=== PATIENT | male | born 1970 | race Caucasian/White ===

== ENCOUNTER 2020-10-22 10:24 | Outpatient (REF) | payer OTHER, SELFPAY ==
[2020-10-22 10:29] LABS: MANUAL DIFF FLAG NO
[2020-10-22 10:46] LABS: Basophils Percent Auto 0.2 % (0-2); Eosinophils Absolute Auto 0.2 X10*3/uL (0.0-0.4); Eosinophils Percent Auto 3.5 % (0-4); Hematocrit 38.9 % (42-52); Hemoglobin 12.5 g/dl (14.0-18.0); Imm Gran Abs Auto 0.01 X10*3/uL (0.00-0.03); Imm Gran Pct Auto 0.2 % (0.0-0.4); Lymphocytes Percent Auto 30.9 % (20-40); Mean Corpuscular HGB Conc 32.1 g/dl (31.0-36.0); Mean Corpuscular Hemoglobin 28.9 pg (27.0-33.0); Mean Platelet Volume 10.4 fL (9.4-12.4); Monocytes Absolute Auto 0.5 X10*3/uL (0.1-1.2); Monocytes Percent Auto 8.5 % (2-11); Neutrophils Absolute Auto 3.6 X10*3/uL (2.0-8.3); Neutrophils Percent Auto 56.7 % (45-73); Platelet Count 251 X10*3/uL (160-400); Red Blood Count 4.32 X10*6/uL (4.60-5.80); Red Cell Distribution Width 13.2 % (11.0-16.0); White Blood Count 6.4 X10*3/uL (4.8-10.8)
[2020-10-22 11:04] LABS: Appearance Urine CLEAR; Color Urine YELLOW; Glucose Urine UA NEG (NEG); Leukocyte Esterase Urine NEG (NEG); Nitrite Urine NEG (NEG); Specific Gravity - Urine >= 1.030 (1.005-1.025); Urine Blood 1+ (NEG); Urine Ketones NEG (NEG); Urine Protein NEG (NEG-TRACE)
[2020-10-22 11:17] LABS: Estimated Average Glucose 120 mg/dL; Hemoglobin A1c % 5.8 %
[2020-10-22 11:21] LABS: Amorphous Sediment Urine TRACE /LPF; RBC Urine 0-2 /HPF (0); WBC Urine 0-2 /HPF (0-4)
[2020-10-22 11:31] LABS: Alanine Aminotransferase 19 U/L (0-40); Albumin Level 4.7 g/dL (3.5-5.0); Alkaline Phosphatase 65 U/L (39-117); Anion Gap 14 (12-20); Aspartate Amino Transferase 18 U/L (5-37); Bilirubin Total 0.7 mg/dL (0.0-1.0); Blood Urea Nitrogen 24 mg/dL (9-16); Calcium 9.6 mg/dL (8.4-10.2); Carbon Dioxide 23 mmol/L (22-29); Chloride 105 mmol/L (96-108); Cholesterol 177 mg/dL; Estimated Glomerular Filt Rate > 60; Glucose Fasting 100 mg/dL (60-99); HDL Cholesterol 49 mg/dL; LDL Cholesterol Calculated 111 mg/dl; Potassium 4.2 mmol/L (3.3-5.1); Sodium 138 mmol/L (135-145); Total Protein 7.4 g/dL (6.5-8.0); Triglycerides 85 mg/dL
[2020-10-22 11:33] LABS: Creatinine Urine 230.23 mg/dL; Microalbum/Creatinine Ratio Ur 4.7 ug/mg cr
[2020-10-22 11:38] LABS: PSA,Total (Free>4and<10) 0.37 ng/mL (0.00-4.00)
== END 2020-10-22 10:25 | disposition home or self-care (01) ==
LOC: HO.LNP 10:24
PROVIDERS: Visit Provider Internal Medicine
DX: Z00.00 Encounter for general adult medical examination without abnormal findings (principal); Z12.5 Encounter for screening for malignant neoplasm of prostate; R73.03 Prediabetes; I10 Essential (primary) hypertension
CPT/HCPCS: 80053; 80061; 81001; 81003; 82043; 83036; 84153; 85025

== ENCOUNTER 2021-03-13 23:50 | Emergency (ER) | payer OTHER, SELFPAY ==
--- NOTE | ~2021-03-13 | US_ITS ---
EXAMINATION: US SCROTUM CLINICAL INFORMATION: Pain, question torsion. COMPARISON: None TECHNIQUE: A sonogram of the scrotum was performed assessing taylor-scale appearance and color Doppler flow. Spectral Doppler analysis of the arterial and venous flow were performed in the testes bilaterally. FINDINGS: RIGHT: Right testicle measures 4.1 x 2.9 x 2.9 cm, volume 18.5 mL. No focal testicular parenchymal lesions are visualized. Spectral Doppler analysis of the arterial and venous flow is normal in the right testis. Right-sided appendix testis is noted. Right epididymis appears enlarged. Right epididymal Doppler flow is increased. There is a 0.4 cm epididymal head cyst. Small right hydrocele with some septations. No right varicocele is seen. LEFT: Left testicle measures 4.2 x 2.3 x 2.6 cm, volume 12.7 mL. No focal testicular parenchymal lesions are visualized. Spectral Doppler analysis of the arterial and venous flow is normal in the left testis. Left epididymal head is normal in size. No left hydrocele or varicocele is seen. Left epididymal Doppler flow is normal. US/US scrotum doppler IMPRESSION: 1. Enlarged and hyperemic right epididymis, consistent with epididymitis. 2. Small right hydrocele with some internal septations. 3. No findings of testicular torsion.
--- NOTE | ~2021-03-13 | US_ITS ---
EXAMINATION: US SCROTUM CLINICAL INFORMATION: Pain, question torsion. COMPARISON: None TECHNIQUE: A sonogram of the scrotum was performed assessing taylor-scale appearance and color Doppler flow. Spectral Doppler analysis of the arterial and venous flow were performed in the testes bilaterally. FINDINGS: RIGHT: Right testicle measures 4.1 x 2.9 x 2.9 cm, volume 18.5 mL. No focal testicular parenchymal lesions are visualized. Spectral Doppler analysis of the arterial and venous flow is normal in the right testis. Right-sided appendix testis is noted. Right epididymis appears enlarged. Right epididymal Doppler flow is increased. There is a 0.4 cm epididymal head cyst. Small right hydrocele with some septations. No right varicocele is seen. LEFT: Left testicle measures 4.2 x 2.3 x 2.6 cm, volume 12.7 mL. No focal testicular parenchymal lesions are visualized. Spectral Doppler analysis of the arterial and venous flow is normal in the left testis. Left epididymal head is normal in size. No left hydrocele or varicocele is seen. Left epididymal Doppler flow is normal. US/US scrotum IMPRESSION: 1. Enlarged and hyperemic right epididymis, consistent with epididymitis. 2. Small right hydrocele with some internal septations. 3. No findings of testicular torsion.
[2021-03-13 23:54] VITALS: BP 180/104; PULSE 95; RESP 20; TEMP 36.8; O2SAT 100; BMI 28.5
--- NOTE | 2021-03-14 00:12 | ED_ITS ---
HPI - General Adult General Chief complaint: General Medical Stated complaint: Groin pain Time Seen by Provider: 03/13/21 23:59 History of Present Illness HPI narrative: Patient is a 50-year-old male presents today with having pain to the right testicle. Symptoms started this morning. There is no fever no chills. Patient's . no pain on urination. No coughing or congestion or upper respiratory symptoms. No history of similar symptoms in the past. Patient is from home. Positive history of hypertension positive allergies to bee stings only no allergies to medications. The pain is extreme worse with touch. Related Data Previous Rx's Medication Instructions Recorded ibuprofen 400 mg tablet 400 mg PO Q6H PRN #20 tab 03/14/21 levofloxacin 500 mg tablet 500 mg PO DAILY #10 tab 03/14/21 oxycodone 5 mg tablet 5 mg PO Q8H PRN #7 tab 03/14/21 Allergies Allergy/AdvReac Type Severity Reaction Status Date / Time bee pollen [Bee Allergy Severe ANAPHYLAXIS Unverified 10/24/19 15:52 Stings] BEE STINGS Allergy Unknown Uncoded 10/26/17 00:00 Review of Systems Verdana 4l Review of Systems: Verdana 4d Positive pain to the Verdana 4d right groin area no nausea no vomiting no chest pain or shortness of breath no dizziness Verdana 4d Yes all other systems are reviewed and are negative [facility] Past Medical History Attestation statement: The following information was validated with the patient. Medical History Hypertension Social History Social History Advance Directives: No Advance Directives Information Provided: No Physical Exam Verdana 4l Vital Signs: Verdana 4d Verdana 4d Vital Signs: Verdana 4d Verdana 4Bd Last Vital Signs Verdana 4d Caustic Liquor Maker New 4d Caustic Liquor Maker New 4d Temp 98.2 F 03/13/21 23:54 Caustic Liquor Maker New 4d Pulse 95 03/13/21 23:54 Caustic Liquor Maker New 4d Resp 20 03/13/21 23:54 BP 180/104 H 03/13/21 23:54 Pulse Ox 100 03/13/21 23:54 BMI result Body Mass Index 28.5 Appearance: Alert. Oriented X3. No acute distress. Eyes: Pupils equal, round and reactive to light. ENT: Pharynx normal. Neck: Normal inspection. Neck supple. No lymph nodes noted. No crepitus CVS: Normal heart rate and rhythm. Pulses normal. Normal S1 and S2 Respiratory: No respiratory distress. Breath sounds normal. No Wheezing. No rales Abdomen: Soft and nontender. No rigidity. No distention. good BS x4 examination of the genital area there is redness and warmth to touch to the right testicle. The right testicle is grossly enlarged. Cream a steroid reflex was intact. There is no discharge and stripping of the penis. There is no gross hernia that was palpable. Skin: Skin warm and dry. Normal skin color. Normal skin turgor. Extremities: No lower extremity edema. Neurovascular intact to all extremities. No Lacerations. No Rash Neuro: Oriented X 3. No motor deficit. No sensory deficit. Moving all extermities. No slurred speech Medical Decision Making MDM Narrative Medical decision making narrative: Patient's symptoms are suggestive of orchitis Versus epididymitis.. Will check urine. GC chlamydia was sent. Will go ahead get an ultrasound of the testicle to rule out the possibility of torsion. Pain medication was given. Will also go ahead and give a dose of Levaquin. Patient is currently in stable condition. Patient is in a monogamous relationship. Lab Data Result diagrams: 03/14/21 00:19 03/14/21 00:19 Labs: Lab Results 03/14/21 03/14/21 Range/Units 00:19 00:19 WBC 17.0 H (4.8-10.8) X10*3/uL RBC 4.35 L (4.60-5.80) X10*6/uL Hgb 12.3 L (14.0-18.0) g/dl Hct 38.3 L (42.0-52.0) % MCV 88.0 (80.0-98.0) fL MCH 28.3 (27.0-33.0) pg MCHC 32.1 (31.0-36.0) g/dl RDW 12.5 (11.0-16.0) % Plt Count 304 (160-400) X10*3/uL MPV 9.3 L (9.4-12.4) fL Immature Gran % (Auto) 0.3 (0.0-0.4) % Neut % (Auto) 82.6 H (45-73) % Lymph % (Auto) 11.0 L (20-40) % [place] % (Auto) 5.8 (2-11) % Eos % (Auto) 0.2 (0-4) % Baso % (Auto) 0.1 (0-2) % Lymph # (Auto) 1.9 (1.2-4.9) X10*3/uL [place] # (Auto) 1.0 (0.1-1.2) X10*3/uL Eos # (Auto) 0.0 (0.0-0.4) X10*3/uL Baso # (Auto) 0.0 (0.0-0.2) X10*3/uL Abs Immat Gran (auto) 0.05 H (0.00-0.03) X10*3/uL Absolute Neuts (auto) 14.1 H (2.0-8.3) x10*3/uL Absolute Nucleated RBC 0.000 (0.0-0.012) X10*3/uL Nucleated RBC % (auto) 0.0 (0.0-0.2) /100WBC Sodium 139 (135-145) mmol/L Potassium 3.9 (3.3-5.1) mmol/L Chloride 104 (96-108) mmol/L Carbon Dioxide 24 (22-29) mmol/L Anion Gap 15 (12-20) BUN 29 H (9-16) mg/dL Creatinine 0.95 (0.5-1.4) mg/dL Estim Creat Clear Calc 107.1 Estimated GFR > 60 Random Glucose 110 (60-115) mg/dL Calcium 10.0 (8.4-10.2) mg/dL Discharge Plan Discharge Clinical Impression: Epididymitis Patient Disposition: Home, Self-Care Prescriptions: New ibuprofen 400 mg tablet 400 mg PO Q6H PRN (Reason: pain) Qty: 20 0RF oxycodone 5 mg tablet 5 mg PO Q8H PRN (Reason: pain) Qty: 7 0RF levofloxacin 500 mg tablet 500 mg PO DAILY Qty: 10 0RF Referrals: Cameron Trejo MD [Physician] - 2 days
[2021-03-14 00:23] LABS: MANUAL DIFF FLAG NO
[2021-03-14 00:24] LABS: Basophils Percent Auto 0.1 % (0-2); Eosinophils Percent Auto 0.2 % (0-4); Hematocrit 38.3 % (42.0-52.0); Hemoglobin 12.3 g/dl (14.0-18.0); Imm Gran Abs Auto 0.05 X10*3/uL (0.00-0.03); Imm Gran Pct Auto 0.3 % (0.0-0.4); Lymphocytes Absolute Auto 1.9 X10*3/uL (1.2-4.9); Mean Corpuscular HGB Conc 32.1 g/dl (31.0-36.0); Mean Corpuscular Hemoglobin 28.3 pg (27.0-33.0); Mean Platelet Volume 9.3 fL (9.4-12.4); Monocytes Percent Auto 5.8 % (2-11); Neutrophils Absolute Auto 14.1 x10*3/uL (2.0-8.3); Neutrophils Percent Auto 82.6 % (45-73); Platelet Count 304 X10*3/uL (160-400); Red Blood Count 4.35 X10*6/uL (4.60-5.80); Red Cell Distribution Width 12.5 % (11.0-16.0)
[2021-03-14] MEDS: HYDROmorphone HCl 0.5 MG/0.5 ML SYRINGE IVPUSH ×2 (00:33→01:37)
[2021-03-14] MEDS: levoFLOXacin 500 MG TABLET PO (00:34)
[2021-03-14 00:39] LABS: Anion Gap 15 (12-20); Blood Urea Nitrogen 29 mg/dL (9-16); Carbon Dioxide 24 mmol/L (22-29); Chloride 104 mmol/L (96-108); Creatinine Clr Calc Pharmacy 107.1; Estimated Glomerular Filt Rate > 60; Glucose Random 110 mg/dL (60-115); Potassium 3.9 mmol/L (3.3-5.1); Sodium 139 mmol/L (135-145)
--- NOTE | 2021-03-14 00:44 | PC.NURSE ---
RN returned to bedside from bringing labs to the tube and obtaining odered medication. Upon arrival to bedside the pt was noted seated on the edge of the bed with spouse at his side who reports the pt passed out for a brief moment, denies the patient falling and/or injuring himself as she reports she was able to get him to a laying position in the bed. Pt noted to be alert, oriented, pale, diaphoretic with tegaderm to left forearm lifted. This RN called for additional assistance, assisted the patient into the bed fully, placed on the cardiac monitor technician (sinus logan noted) and an ice pack applied to his forehead. Staff replaced the IV securement and secured with additional wrap. Pt was medicated per MD order for 9/10 right testicular pain; pt's toradol was held as he and his bedside visitor reported Advil at 2030 this evening. Md made aware and toradol to be held at this time. Call roberts is within reach, lights dimmed for comfort and RN will continue to monitor. MD requesting UA, pt to be encouraged to attempt to provide a sample.
[2021-03-14] MEDS: 0.9 % Sodium Chloride 1,000 ML 999 ML IV (01:37)
[2021-03-14 01:43] VITALS: BP 128/78; PULSE 58; RESP 18; O2SAT 97
[2021-03-14 01:55] LABS: Appearance Urine CLOUDY; Color Urine YELLOW; Glucose Urine UA NEG (NEG); Leukocyte Esterase Urine 2+ (NEG); Nitrite Urine NEG (NEG); PH 7.5 (5.0-8.0); UACC Culture Trigger YES; Urine Blood 3+ (NEG); Urine Ketones NEG (NEG); Urine Protein 1+ MG/DL (NEG-TRACE)
[2021-03-14 02:01] LABS: Bacteria Urine 2+ /LPF; Mucus Urine 1+ /LPF; UACC CULT YES
[2021-03-14 03:22] LABS: CT PCR NOT DETECTED (Not Detect.); NG PCR NOT DETECTED (Not Detect.)
== END 2021-03-14 02:37 | disposition home or self-care (01) ==
LOC: HO.ED 03-14 00:23
PROVIDERS: Emergency Provider Emergency Medicine Emergency Medical Services; PCP Internal Medicine
DX: N45.1 Epididymitis (principal); N50.811 Right testicular pain; R10.31 Right lower quadrant pain; Z79.899 Other long term (current) drug therapy; Z20.2 Contact with and (suspected) exposure to infections with a predominantly sexual mode of transmission
CPT/HCPCS: 36415; 76870; 80048; 81001; 85025; 87086; 87491; 87591; 93975; 96374; 96375; 96376; 99284; J1170

== ENCOUNTER 2021-03-26 11:10 | Outpatient (REF) | payer OTHER, SELFPAY ==
[2021-03-26 11:14] LABS: MANUAL DIFF FLAG NO
[2021-03-26 11:32] LABS: Basophils Percent Auto 0.3 % (0-2); Eosinophils Absolute Auto 0.2 X10*3/uL (0.0-0.4); Eosinophils Percent Auto 2.2 % (0-4); Hematocrit 37.4 % (42.0-52.0); Hemoglobin 11.8 g/dl (14.0-18.0); Imm Gran Abs Auto 0.03 X10*3/uL (0.00-0.03); Imm Gran Pct Auto 0.4 % (0.0-0.4); Lymphocytes Absolute Auto 1.9 X10*3/uL (1.2-4.9); Lymphocytes Percent Auto 26.3 % (20-40); Mean Corpuscular HGB Conc 31.6 g/dl (31.0-36.0); Mean Corpuscular Hemoglobin 28.5 pg (27.0-33.0); Mean Corpuscular Volume 90.3 fL (80.0-98.0); Mean Platelet Volume 10.1 fL (9.4-12.4); Monocytes Absolute Auto 0.5 X10*3/uL (0.1-1.2); Monocytes Percent Auto 7.4 % (2-11); Neutrophils Absolute Auto 4.5 x10*3/uL (2.0-8.3); Neutrophils Percent Auto 63.4 % (45-73); Platelet Count 319 X10*3/uL (160-400); Red Blood Count 4.14 X10*6/uL (4.60-5.80); Red Cell Distribution Width 12.8 % (11.0-16.0); White Blood Count 7.2 X10*3/uL (4.8-10.8)
[2021-03-26 11:35] LABS: Appearance Urine CLEAR; Color Urine YELLOW; Glucose Urine UA NEG (NEG); Leukocyte Esterase Urine NEG (NEG); Nitrite Urine NEG (NEG); PH 5.5 (5.0-8.0); Specific Gravity - Urine >= 1.030 (1.005-1.025); Urine Blood 1+ (NEG); Urine Ketones NEG (NEG); Urine Protein NEG (NEG-TRACE)
[2021-03-26 11:41] LABS: Blood Urea Nitrogen 31 mg/dL (9-16); Estimated Glomerular Filt Rate > 60
[2021-03-26 11:50] LABS: RBC Urine 0-2 /HPF (0)
[2021-03-26 11:51] LABS: Bacteria Urine TRACE /LPF; Mucus Urine 1+ /LPF
== END 2021-03-26 11:11 | disposition home or self-care (01) ==
LOC: HO.LNP 11:10
PROVIDERS: Visit Provider Internal Medicine
DX: D72.829 Elevated white blood cell count, unspecified (principal); R31.9 Hematuria, unspecified; R79.9 Abnormal finding of blood chemistry, unspecified
CPT/HCPCS: 81001; 82565; 84520; 85025; 87086

== ENCOUNTER 2021-04-19 10:46 | Outpatient (REF) | payer OTHER, SELFPAY ==
[2021-04-19 11:08] LABS: Blood Urea Nitrogen 20 mg/dL (9-16); Estimated Glomerular Filt Rate > 60
== END 2021-04-19 10:47 | disposition home or self-care (01) ==
LOC: HO.LNP 10:46
PROVIDERS: Visit Provider Internal Medicine
DX: R79.9 Abnormal finding of blood chemistry, unspecified (principal)
CPT/HCPCS: 82565; 84520

== ENCOUNTER → 2021-05-05 11:29 | Outpatient (BNVA) | payer OTHER, SELFPAY | PROVIDERS: PCP Internal Medicine; Visit Provider Urology | DX: Z13.89 Encounter for screening for other disorder (principal) ==

== ENCOUNTER 2021-05-06 08:50 | Outpatient (REF) | payer OTHER, SELFPAY ==
--- NOTE | ~2021-05-06 | XR_ITS ---
EXAMINATION: XR ANKLE, RIGHT CLINICAL INFORMATION: Pain in right ankle. COMPARISON: None TECHNIQUE: AP, lateral, and mortise views of the right ankle. FINDINGS: There is a linear shaped focus of calcification or ossification paralleling the posterior cortex of the posterior malleolus of the tibia. There is mild arthrosis of the talonavicular joint manifested by small marginal osteophytes. Small calcaneal spurs. XR/XR ankle RT min 3V IMPRESSION: Calcification or ossification posterior to the tibia likely sequela of old soft tissue trauma with resultant dystrophic or heterotopic ossification. No acute abnormality. Mild arthrosis of the talonavicular joint.
== END 2021-05-06 08:51 | disposition home or self-care (01) ==
LOC: HO.HOSX 08:50
PROVIDERS: Visit Provider Physician Assistant
DX: S93.401A Sprain of unspecified ligament of right ankle, initial encounter (principal)
CPT/HCPCS: 73610

== ENCOUNTER 2021-06-18 08:00 | Outpatient (RCR) | payer OTHER, SELFPAY ==
[2021-05-18 08:02] VITALS: BP 161/95; PULSE 54
--- NOTE | 2021-05-18 08:59 | MHC.PT.EP ---
[facility] [place] Office [place] Office [place] Office [address] Moises Ghosh [address] [phone] F: [phone] F: [phone] F: [phone] F: [phone] Physical Therapy Plan of Care Date of Evaluation: Date of Surgery: NA Diagnosis: Sprain of unspecified ligament of R ankle, initial encounter Assessment: Antwon is a 50 year old male who is referred to PT for Sprain of unspecified ligament of R ankle, initial encounter . He reports of injuring his ankle about 2 months back following a fall on his R knee which resulted in R ankle going into excessive plantar flexion. On PT examination he presents with a mild constant pain which gets worse with standing, stairs, and walking more than 20 minutes, decreased ankle ROM, decreased ankle muscle strength, impaired posture, balance and gait. Due to this he has pain with his ADLS but is able to perform them. He has a desk job. He would benefit from skilled PT to address the aforementioned impairments and improve tolerance to functional activities. Frequency and Duration: The patient will be seen 2/week for 5 weeks Short Term Goals: 1. Pt will have 50% decrease in pain which will help him sit at work without pain in 2 weeks. 2. Pt will have all ankle ROM WNL which will help him to negotiate stairs with a pain no more than 1/10 in 3 weeks Assisted Goals: 1. Pt will demonstrate an increase in muscle strength by 1 grade which will enable him to walk for 30 minutes without pain in 4 weeks. 2. Pt will return to PLOF in 5 weeks Treatment Plan: Modalities to reduce pain, spasms and effusion. Manual therapy to restore motion and function. Therapeutic exercise to improve strength and flexibility. Neuromuscular re-education for posture and balance. Therapeutic activities to return to functional activities of daily living. Electronically signed by: Lizbeth Fuchs PT DPT Please sign and return to therapist. Thank you for your referral.
--- NOTE | 2021-07-26 11:24 | MHC.PT.DC ---
[facility] [place] Office [place] Office [place] Office [address] Moises Ghosh [address] [phone] F: [phone] F: [phone] F: [phone] F: [phone] Physical Therapy Discharge Report Diagnosis: Sprain of unspecified ligament of R ankle, initial encounter Date of Surgery: NA Date of Evaluation: 05/18/21 Date of Discharge: 07/26/21 Treatments to Date: 6 Cancellations to Date: 0 No Shows to Date: 0 Discharge Status: Patient Elected to Stop Discharge Summary: Antwon was making progress with PT. However after 6 PT visits he stopped coming to PT. He is therefore being d/c for non compliance. Electronically signed by: Lizbeth Fuchs, PT DPT Please sign and return to therapist. Thank you for your referral.
== END 2021-07-26 11:25 | disposition home or self-care (01) ==
LOC: HO.PT 08:00
PROVIDERS: PCP Internal Medicine; Visit Provider Physician Assistant
DX: S93.401D Sprain of unspecified ligament of right ankle, subsequent encounter (principal)
CPT/HCPCS: 97035; 97110; 97112; 97140; 97161

== ENCOUNTER 2021-06-22 10:38 | Outpatient (REF) | payer OTHER, SELFPAY ==
[2021-06-22 11:47] LABS: Appearance Urine HAZY; Color Urine STRAW; Glucose Urine UA NEG (NEG); Leukocyte Esterase Urine NEG (NEG); Nitrite Urine NEG (NEG); PH 7.5 (5.0-8.0); Specific Gravity - Urine 1.015 (1.005-1.025); Urine Blood TRACE (NEG); Urine Ketones NEG (NEG); Urine Protein NEG (NEG-TRACE)
[2021-06-22 12:02] LABS: RBC Urine 0-2 /HPF (0); WBC Urine 0-2 /HPF (0-4)
== END 2021-06-22 10:39 | disposition home or self-care (01) ==
LOC: HO.LNP 10:38
PROVIDERS: PCP Internal Medicine; Visit Provider Internal Medicine
DX: Z87.448 Personal history of other diseases of urinary system (principal)
CPT/HCPCS: 81001

== ENCOUNTER 2021-08-03 10:25 | Outpatient (REF) | payer OTHER, SELFPAY ==
--- NOTE | ~2021-08-03 | US_ITS ---
EXAMINATION: ULTRASOUND EXTREMITY NONVASCULAR, RIGHT CLINICAL INFORMATION: Right knee pain. Rule out Duarte's cyst. COMPARISON: None TECHNIQUE: Doppler color and grayscale evaluation of the popliteal fossa. FINDINGS: No Duarte's cyst is seen. No knee joint effusion is seen. US/US extremity nonvascular quispe IMPRESSION: No Duarte's cyst.
== END 2021-08-03 10:26 | disposition home or self-care (01) ==
LOC: HO.HMGCX 10:25
PROVIDERS: Visit Provider Internal Medicine
DX: M71.21 Synovial cyst of popliteal space [Baker], right knee (principal)
CPT/HCPCS: 76882

== ENCOUNTER 2021-10-28 12:34 | Outpatient (REF) | payer OTHER, SELFPAY ==
[2021-10-28 12:39] LABS: MANUAL DIFF FLAG NO
[2021-10-28 13:02] LABS: Appearance Urine Clear; Basophils Percent Auto 0.3 % (0-2); Color Urine Yellow; Eosinophils Absolute Auto 0.2 X10*3/uL (0.0-0.4); Eosinophils Percent Auto 2.9 % (0-4); Glucose Urine UA Negative (Negative); Hemoglobin 12.7 g/dl (14.0-18.0); Imm Gran Abs Auto 0.02 X10*3/uL (0.00-0.03); Imm Gran Pct Auto 0.3 % (0.0-0.4); Leukocyte Esterase Urine Negative (Negative); Lymphocytes Absolute Auto 1.7 X10*3/uL (1.2-4.9); Mean Corpuscular HGB Conc 31.8 g/dl (31.0-36.0); Mean Corpuscular Hemoglobin 28.5 pg (27.0-33.0); Mean Corpuscular Volume 89.7 fL (80.0-98.0); Mean Platelet Volume 10.1 fL (9.4-12.4); Monocytes Absolute Auto 0.5 X10*3/uL (0.1-1.2); Neutrophils Absolute Auto 4.1 x10*3/uL (2.0-8.3); Neutrophils Percent Auto 63.5 % (45-73); Nitrite Urine Negative (Negative); PH 6.5 (5.0-9.0); Platelet Count 236 X10*3/uL (160-400); Red Blood Count 4.46 X10*6/uL (4.60-5.80); Red Cell Distribution Width 13.2 % (11.0-16.0); Specific Gravity - Urine 1.025 (1.005-1.025); UMIC TRIGGER UA YES; Urine Blood Small (1+) (Negative); Urine Ketones Negative (Negative); Urine Protein Negative (Neg-Trace); White Blood Count 6.5 X10*3/uL (4.8-10.8)
[2021-10-28 13:07] LABS: Bacteria Urine None Seen (None Seen); Hyaline Casts Urine 0-2 /LPF (0-2); Squamous Epithelial Cell Urine 0-2 /HPF (0-2); WBC Urine 0-5 /HPF (0-5)
[2021-10-28 13:13] LABS: Estimated Average Glucose 117 mg/dL; Hemoglobin A1c % 5.7 %
[2021-10-28 13:14] LABS: Alanine Aminotransferase 16 U/L (0-40); Albumin Level 4.6 g/dL (3.5-5.0); Alkaline Phosphatase 64 U/L (39-117); Anion Gap 17 (12-20); Aspartate Amino Transferase 18 U/L (5-37); Bilirubin Total 0.7 mg/dL (0.0-1.0); Blood Urea Nitrogen 29 mg/dL (9-16); Calcium 9.5 mg/dL (8.4-10.2); Carbon Dioxide 22 mmol/L (22-29); Chloride 104 mmol/L (96-108); Cholesterol 195 mg/dL; Estimated Glomerular Filt Rate > 60; Glucose Fasting 110 mg/dL (60-99); HDL Cholesterol 43 mg/dL; LDL Cholesterol Calculated 126 mg/dl; Potassium 4.2 mmol/L (3.3-5.1); Sodium 139 mmol/L (135-145); Total Protein 7.4 g/dL (6.5-8.0); Triglycerides 131 mg/dL
[2021-10-28 13:29] LABS: Creatinine Urine 191.62 mg/dL; Microalbum/Creatinine Ratio Ur 6.7 ug/mg cr
[2021-10-28 13:35] LABS: PSA,Total (Free>4and<10) 0.35 ng/mL (0.00-4.00)
== END 2021-10-28 12:35 | disposition home or self-care (01) ==
LOC: HO.LNP 12:34
PROVIDERS: Visit Provider Internal Medicine
DX: Z00.00 Encounter for general adult medical examination without abnormal findings (principal); Z12.5 Encounter for screening for malignant neoplasm of prostate; E78.6 Lipoprotein deficiency; R73.03 Prediabetes; I10 Essential (primary) hypertension; D72.829 Elevated white blood cell count, unspecified
CPT/HCPCS: 80053; 80061; 81001; 81003; 82043; 83036; 84153; 85025

== ENCOUNTER 2022-04-18 10:42 | Day surgery (SDC) | payer OTHER, SELFPAY ==
[2022-04-18 11:27] VITALS: BP 156/79; PULSE 52; RESP 16; TEMP 36.9; O2SAT 100; BMI 29.9
--- NOTE | 2022-04-18 12:04 | ECG_ITS ---
Test Reason : cp Blood Pressure : / mmHG Vent. Rate : 037 BPM Atrial Rate : 037 BPM P-R Int : 158 ms QRS Dur : 090 ms QT Int : 510 ms P-R-T Axes : 009 044 -06 degrees QTc Int : 400 ms Marked sinus bradycardia Artifact in tracing Abnormal ECG When compared with ECG of 25-MAR-2016 00:41, Vent. rate has decreased BY 21 BPM Referred By: Navin Lee Electronically Signed By:Kane Zhou
--- NOTE | 2022-04-18 12:10 | P.CONAN_ITS ---
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 Hypertension Locking of left knee Microscopic hematuria Family History Family history of problems with anesthesia: No Surgical History Surgical History H/O arthroscopy of left knee History of Problems with Anesthesia: No Social History Social History (Updated 05/06/21 @ 09:21 by Dorothea Weinstein CMA) Household Members: Spouse Household Members Other:: son Housing: House Alcohol intake: current Alcohol intake frequency: 0-2 drinks per day Alcohol type: wine Patient Tobacco Use Status: Former Tobacco user Use of substances other than those prescribed or required for medical reasons: Yes Substance Use Frequency: Occasionally Advance Directives: No Advance Directives Information Provided: Yes service: No Current occupational status: employed Current occupation: work for [employer]/ rt [employer] Allergies Allergy/AdvReac Type Severity Reaction Status Date / Time bee pollen [Bee Stings] Allergy Severe ANAPHYLAXIS Verified 05/06/21 09:18 BEE STINGS Allergy Unknown Unknown Uncoded 05/06/21 09:18 Active Medications: Current Medications Sodium Biphosphate/Sodium Phosphate (Sodium Phosphate,[place]-Dibasic 133 Ml Enema) 133 ml IL ONCE PRN PRN Reason: Poor Colonoscopy Prep Results Home Medications Medication Instructions Recorded Confirmed Last Taken Type valsartan 320 1 tab PO DAILY 05/05/21 Unknown History mg-hydrochlorothiazide 12.5 mg tablet Exam Exam Date and Time: April 18, 2022 1210 Height,Weight and Vital Signs: Height 5 ft 11 in Weight 97.522 kg Last Vital Signs Temp 98.5 F 04/18/22 11:27 Pulse 52 04/18/22 11:27 Resp 16 04/18/22 11:27 BP 156/79 H 04/18/22 11:27 Pulse Ox 100 04/18/22 11:27 O2 Del Method 04/18/22 11:27 Narrative Narrative: symptomatic bradycardia with junctional rhytm was observs ed in pacu Airway Mallampati Class: II TM Dist: >3cm Heart: logan Lungs: cta Assessment and Plan Assessment Anesthesia Assessment: Anesthesia Plan Discussed and Chart Reviewed Final Anesthetic Review Family History of Problems with Anesthesia: No History of Problems with Anesthesia: No NPO: Yes ASA Class: I Final Preanesthetic Review: No Changes in Pt Med Stat, Meds/Allgs Chart Reviewed, Consent Obtained/Reviewed and Anes Risks/Benef Reviewed Patient Risk: Low Procedure Risk: Low Anesthetic Plan Anesthetic Plan: MAC: Disposition: Standard PACU
--- NOTE | 2022-04-18 12:23 | PC.NURSE ---
upon placing i.v. patient heart rate down to upper 20's and symptomatic pale clammy and warm/flush, trend bed, opened fluids, md. Fernandez to bedside and appreciated ?junctional rythm, resolved shortly after to sinus logan, otherwise patient resolved and ekg as per order, patient resolution resting comfortably to baseline withing 10 minutes or so.
--- NOTE | 2022-04-18 13:27 | PM.OP ---
Brief Operative Note Date of Service: 04/18/22 Pre-op diagnosis: Screening Post-op diagnosis: other (Diverticulosis) Procedure: Colonoscopy to the cecum and TI Surgeon: Eze Bowser Anesthesia: MAC Was an Coroner Forensic Technician used for this Procedure?: No Estimated blood loss (mL): 0 Pathology: none sent Condition: stable Disposition: PACU
[2022-04-18 13:28] VITALS: BP 108/53; PULSE 59; RESP 18; TEMP 36.5; O2SAT 97
[2022-04-18 13:43] VITALS: BP 113/56; PULSE 45; RESP 18; TEMP 36.5; O2SAT 98
--- NOTE | 2022-04-18 22:36 | OP_ITS ---
SURGEON: Eze Bowser MD INDICATIONS: The patient presents for evaluation of colorectal cancer screening. Full consent has been obtained from him for this, including risks of bleeding and perforation. PREOPERATIVE DIAGNOSIS: Colorectal cancer screening. POSTOPERATIVE DIAGNOSIS: Colorectal cancer screening, sigmoid diverticulosis, and small internal hemorrhoids. PROCEDURE PERFORMED: Colonoscopy to the cecum and terminal ileum. ESTIMATED BLOOD LOSS: COMPLICATIONS: ANESTHESIA: Medication used, monitored anesthesia care. ASSISTANTS: SPECIMENS: DESCRIPTION OF PROCEDURE: The patient was placed in the left lateral decubitus position. The digital rectal exam revealed no abnormalities. The Olympus video pediatric colonoscope was then entered into the rectum and advanced easily to the cecum. Once in the cecum, I did identify normal-appearing cecal pouch with appendiceal orifice and a normal-appearing ileocecal valve. The terminal ileum was cannulated and appeared normal. The scope was withdrawn back in the colon. The entire cecum and ileocecal valve appeared normal. There was transillumination of light deep in the right lower quadrant. The scope was slowly withdrawn assessing all mucosal surfaces carefully. Preparation was excellent. I did not visualize any sign of polyps, colitis nor angiodysplasia. There was a mild amount of sigmoid diverticulosis. In the rectum, the scope was retroflexed visualizing small internal hemorrhoids, but no other pathology. The rectal mucosa appeared normal. The scope was straightened out and withdrawn from the patient. He tolerated the procedure well and was returned to the recovery area in stable condition. IMPRESSION: 1. Diverticulosis. 2. Internal hemorrhoids. PLAN: Given today's negative colonoscopy and negative family history of colon cancer, I would recommend a followup colonoscopy in 10 years for screening. He will otherwise see me on a p.r.n. basis. MD JUDI Odonnell/AGGIE / [id number] CAIT
== END 2022-04-18 14:31 | disposition home or self-care (01) ==
PROVIDERS: PCP Internal Medicine; Visit Provider Internal Medicine
PROC: 0DJD8ZZ Inspection of Lower Intestinal Tract, Via Natural or Artificial Opening Endoscopic (ICD-10-PCS; CPT 45378; principal; 2022-04-18 12:20)
DX: Z12.11 Encounter for screening for malignant neoplasm of colon (principal); K57.30 Diverticulosis of large intestine without perforation or abscess without bleeding; K64.8 Other hemorrhoids; I10 Essential (primary) hypertension; N45.1 Epididymitis; Z79.899 Other long term (current) drug therapy; Z87.891 Personal history of nicotine dependence
CPT/HCPCS: 45378; 93005; J2250

== ENCOUNTER 2022-10-31 11:19 | Outpatient (REF) | payer OTHER, SELFPAY ==
[2022-10-31 11:23] LABS: MANUAL DIFF FLAG NO
[2022-10-31 11:37] LABS: Basophils Percent Auto 0.2 % (0-2); Eosinophils Absolute Auto 0.1 X10*3/uL (0.0-0.4); Eosinophils Percent Auto 2.5 % (0-4); Hematocrit 38.7 % (42.0-52.0); Hemoglobin 12.3 g/dl (14.0-18.0); Imm Gran Abs Auto 0.02 X10*3/uL (0.00-0.03); Imm Gran Pct Auto 0.4 % (0.0-0.4); Lymphocytes Absolute Auto 1.5 X10*3/uL (1.2-4.9); Lymphocytes Percent Auto 27.3 % (20-40); Mean Corpuscular HGB Conc 31.8 g/dl (31.0-36.0); Mean Corpuscular Hemoglobin 28.5 pg (27.0-33.0); Mean Corpuscular Volume 89.6 fL (80.0-98.0); Mean Platelet Volume 10.3 fL (9.4-12.4); Monocytes Absolute Auto 0.4 X10*3/uL (0.1-1.2); Monocytes Percent Auto 7.2 % (2-11); Neutrophils Absolute Auto 3.5 x10*3/uL (2.0-8.3); Neutrophils Percent Auto 62.4 % (45-73); Platelet Count 212 X10*3/uL (160-400); Red Blood Count 4.32 X10*6/uL (4.60-5.80); Red Cell Distribution Width 12.6 % (11.0-16.0); White Blood Count 5.6 X10*3/uL (4.8-10.8)
[2022-10-31 11:42] LABS: Appearance Urine Clear; Color Urine Yellow; Glucose Urine UA Negative (Negative); Leukocyte Esterase Urine Negative (Negative); Nitrite Urine Negative (Negative); Specific Gravity - Urine 1.025 (1.005-1.025); UMIC TRIGGER UACC YES; Urine Blood Small (1+) (Negative); Urine Ketones Negative (Negative); Urine Protein Negative (Neg-Trace)
[2022-10-31 11:44] LABS: Estimated Average Glucose 117 mg/dL; Hemoglobin A1c % 5.7 % (<6.0)
[2022-10-31 11:59] LABS: Bacteria Urine None Seen (None Seen); Hyaline Casts Urine 0-2 /LPF (0-2); Squamous Epithelial Cell Urine 0-2 /HPF (0-2); WBC Urine 0-5 /HPF (0-5)
[2022-10-31 12:27] LABS: Alanine Aminotransferase 13 U/L (0-40); Albumin Level 4.5 g/dL (3.5-5.0); Alkaline Phosphatase 65 U/L (39-117); Anion Gap 14 (12-20); Aspartate Amino Transferase 18 U/L (5-37); Bilirubin Total 0.3 mg/dL (0.0-1.0); Blood Urea Nitrogen 24 mg/dL (9-16); Calcium 9.7 mg/dL (8.4-10.2); Carbon Dioxide 24 mmol/L (22-29); Chloride 108 mmol/L (96-108); Cholesterol 158 mg/dL (<200); Estimated Glomerular Filt Rate > 60; Glucose Fasting 103 mg/dL (60-99); HDL Cholesterol 45 mg/dL (>40); LDL Cholesterol Calculated 97 mg/dL (<100); Potassium 3.7 mmol/L (3.3-5.1); Sodium 142 mmol/L (135-145); Total Protein 7.1 g/dL (6.5-8.0); Triglycerides 82 mg/dL (<150)
[2022-10-31 13:14] LABS: Creatinine Urine 237.03 mg/dL; Microalbum/Creatinine Ratio Ur 10.9 ug/mg cr (<30)
[2022-10-31 13:17] LABS: PSA,Total (Free>4and<10) 0.34 ng/mL (0.00-4.00)
== END 2022-10-31 11:20 | disposition home or self-care (01) ==
LOC: HO.LNP 11:19
PROVIDERS: Visit Provider Internal Medicine
DX: Z00.00 Encounter for general adult medical examination without abnormal findings (principal); E78.6 Lipoprotein deficiency; R73.09 Other abnormal glucose; I10 Essential (primary) hypertension; Z12.5 Encounter for screening for malignant neoplasm of prostate
CPT/HCPCS: 80053; 80061; 81001; 82043; 82570; 83036; 84153; 85025

== ENCOUNTER 2023-06-16 11:21 | Outpatient (REF) | payer OTHER, SELFPAY ==
--- NOTE | ~2023-06-16 | XR_ITS ---
EXAMINATION: XR LUMBAR SPINE XR BILATERAL SACROILIAC JOINTS CLINICAL INFORMATION: Fracture of sacrum. COMPARISON: None available. TECHNIQUE: 7 views of the lumbar spine. 3 views of the bilateral sacroiliac joints. FINDINGS: LUMBAR SPINE: Degenerative changes in the imaged lower thoracic spine. Levoscoliosis of the lumbar spine. Advanced facet arthritis in the [id number] lumbar spine. Moderate multilevel lumbar spondylosis with mild multilevel loss of disc space height. Minimal grade 1 anterolisthesis of L4 on L5, and of L5 on S1. SACROILIAC JOINTS: Moderate degenerative changes with hypertrophic change in the bilateral sacroiliac joints, right greater than left. Visualization of the sacrum limited due to overlying bone and soft tissue structures. XR/XR sacroiliac joint min 3V IMPRESSION: 1. Advanced facet arthritis in the mid to lower lumbar spine. 2. Moderate multilevel lumbar spondylosis with mild multilevel loss of disc space height. Minimal grade 1 anterolisthesis of L4 on L5, and of L5 on S1. 3. Moderate degenerative changes in the bilateral sacroiliac joints, right greater than left. 4. Visualization of the sacrum limited due to overlying bone and soft tissue structures. 5. CT scan or MRI recommended for further evaluation if there is clinical concern for fracture or other underlying pathology. This study was presented today 06/21/2023 for interpretation. STAT results provided at this time as requested by referring provider.
--- NOTE | ~2023-06-16 | XR_ITS ---
EXAMINATION: XR LUMBAR SPINE XR BILATERAL SACROILIAC JOINTS CLINICAL INFORMATION: Fracture of sacrum. COMPARISON: None available. TECHNIQUE: 7 views of the lumbar spine. 3 views of the bilateral sacroiliac joints. FINDINGS: LUMBAR SPINE: Degenerative changes in the imaged lower thoracic spine. Levoscoliosis of the lumbar spine. Advanced facet arthritis in the [id number] lumbar spine. Moderate multilevel lumbar spondylosis with mild multilevel loss of disc space height. Minimal grade 1 anterolisthesis of L4 on L5, and of L5 on S1. SACROILIAC JOINTS: Moderate degenerative changes with hypertrophic change in the bilateral sacroiliac joints, right greater than left. Visualization of the sacrum limited due to overlying bone and soft tissue structures. XR/XR lumbar spine 6V w bending IMPRESSION: 1. Advanced facet arthritis in the mid to lower lumbar spine. 2. Moderate multilevel lumbar spondylosis with mild multilevel loss of disc space height. Minimal grade 1 anterolisthesis of L4 on L5, and of L5 on S1. 3. Moderate degenerative changes in the bilateral sacroiliac joints, right greater than left. 4. Visualization of the sacrum limited due to overlying bone and soft tissue structures. 5. CT scan or MRI recommended for further evaluation if there is clinical concern for fracture or other underlying pathology. This study was presented today 06/21/2023 for interpretation. STAT results provided at this time as requested by referring provider.
== END 2023-06-16 11:22 | disposition home or self-care (01) ==
LOC: HO.XRAY 11:21
PROVIDERS: Visit Provider Internal Medicine
DX: S32.10XA Unspecified fracture of sacrum, initial encounter for closed fracture (principal)
CPT/HCPCS: 72114; 72202

== ENCOUNTER 2023-06-25 12:26 | Emergency (ER) | payer OTHER, SELFPAY ==
[2023-06-25 12:45] VITALS: BP 159/81; PULSE 59; RESP 18; TEMP 37; O2SAT 99; BMI 28.7
--- NOTE | 2023-06-25 12:47 | ED_ITS ---
HPI - Eye Problem General Chief complaint: Eye Problems Stated complaint: R eye problem Time Seen by Provider: 06/25/23 15:17 Source: patient Mode of arrival: ambulatory Limitations: no limitations History of Present Illness HPI Narrative: 52-year-old male with a history of hypertension presents the ER with complaints of floaters in his right eye since Monday. today he had some slight itching. He denies any injury or trauma. He denies any associated pain, vision changes, flashing lights, photophobia, discharge. No recent cough or cold symptoms. No allergy symptoms. Does use corrective lenses. No MADRID, dizziness, fevers, chills, neck pain or neck stiffness. Related Data Home Medications ?Medication ?Instructions ?Recorded ?Confirmed valsartan 320 1 tab PO DAILY 05/05/21 mg-hydrochlorothiazide 12.5 mg tablet Previous Rx's ?Medication ?Instructions ?Recorded ibuprofen 400 mg tablet 400 mg PO Q6H PRN pain #20 tabs 03/14/21 Allergies Allergy/AdvReac Type Severity Reaction Status Date / Time bee pollen [Bee Stings] Allergy Severe ANAPHYLAXIS Verified 06/25/23 12:49 BEE STINGS Allergy Unknown Unknown Uncoded 05/06/21 09:18 Review of Systems Review of Systems: Yes all other systems are reviewed and are negative Constitutional: Constitutional: Reports no additional constitutional complaints, Denies body ache(s), Denies chills, Denies fever(s), Denies headache(s) and Denies weakness Eyes: Eyes: Reports no additional eye complaints, Denies blurry vision, Denies change in vision, Denies diplopia, Denies eye discharge, Reports floaters, Denies irritation, Reports itchy eyes, Denies other visual disturbances, Denies eye pain, Reports requires corrective lenses, Denies seeing flashes and Denies photophobia ENT: Reports system reviewed and no additional complaints, except as documented, Denies dizziness, Denies headache(s), Denies nasal congestion, Denies nasal discharge and Denies neck pain Cardiovascular: Cardiovascular: Reports no additional cardiovascular complaints, Denies chest pain, Denies leg edema and Denies dyspnea Respiratory: Respiratory: Reports no additional respiratory complaints, Denies cough and Denies dyspnea Gastrointestinal: Gastrointestinal: Reports no additional gastrointestinal complaints, Denies abdominal pain, Denies diarrhea, Denies nausea and Denies vomiting Genitourinary: Genitourinary: Denies urinary incontinence Musculoskeletal: Musculoskeletal: Reports no additional musculoskeletal complaints, Denies back pain, Denies arthralgias, Denies joint swelling, Denies neck pain, Denies numbness and Denies tingling Integumentary/Breasts: Skin/Breast: Reports system reviewed and no additional complaints, except as docu and Denies rash Neurologic: Reports system reviewed and no additional complaints, except as documented, Denies Abnormal speech present, Denies dizziness, Denies headache(s), Denies numbness, Denies tingling and Denies weakness Allergic/Immunologic: Allergic/Immunologic: Reports itchy eyes PMFSH Past Medical History Attestation statement: The following information was validated with the patient. 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 Locking of left knee Hypertension Surgical History H/O arthroscopy of left knee Social History Social History Household Members: Spouse Household Members Other:: son Housing: House Alcohol intake: current Alcohol intake frequency: 0-2 drinks per day Alcohol type: wine Patient Tobacco Use Status: Former Tobacco user Advance Directives: No Advance Directives Information Provided: No Do you have a plan to hurt others: No Plan service: No Current occupational status: employed Current occupation: work for the city/ [employer] Physical Exam Vital Signs: Vital Signs: Last Vital Signs Temp 98.6 F 06/25/23 12:45 Pulse 59 06/25/23 12:45 Resp 18 06/25/23 12:45 BP 159/81 H 06/25/23 12:45 Pulse Ox 99 06/25/23 12:45 O2 Del Method Room Air 06/25/23 12:45 BMI result Body Mass Index 28.7 Const: General: cooperative, healthy appearing, comfortable and no acute distress Orientation/consciousness: patient oriented x3 Limitations: no limitations HEENT: Head: Yes normal to inspection Ears: hearing grossly normal bilaterally and TM's normal bilaterally General nose exam: Normal external nose present Face and sinus: Yes normal facial exam Mouth: Normal oral and palatal mucosa present Throat: Yes posterior oropharynx normal, Yes tonsils normal and Yes uvula midline Eyes: Other: IOP bilaterally 14 General: appearance normal, both eyes and all related structures Visual Cabrera: normal visual cabrera by confrontation Alignment and Position: alignment normal Periorbital: periorbital findings normal Eyelids: Yes eyelids normal Conjunctivae: conjunctivae normal Sclerae: sclerae normal Corneas: corneas normal and fluorescein used Pupils: Equal, round and reactive pupils present EOM: EOMs intact bilaterally Direct Ophthalmoscopy: normal light reflex, no photophobia, no papilledema, fundi normal bilaterally, anterior chamber normal and No photophobia Neck: Neck: Yes normal visual inspection, Yes full ROM and Yes no lymphadenopathy Chest: Chest palpation & inspection: normal inspection of the chest Resp: Effort & Inspection: normal respiratory effort Auscultation: clear to auscultation bilaterally Cardio: Rate: regular rate Rhythm: regular rhythm Peripheral pulses: Peripheral pulses 2+ throughout GI: Inspection: Yes normal to inspection Palpation (GI): Soft to palpation and nontender Auscultation: normal bowel sounds Back/Spine/Pelvis: Thoracic/Lumbar Spine: thoracic and lumbar spine normal to inspection Skin: General skin exam: no rashes or lesions noted Neuro: General: patient oriented x3, no focal motor deficits and normal sensation to monofilament Cranial nerves: Yes Equal, round and reactive pupils present Cognition (Neuro): normal cognition Speech: No Abnormal speech present Gait exam (Neuro): Normal gait present Motor exam (neuro): 5/5 motor strength present throughout Extrem: General: Yes normal to inspection Course Course Course Narrative: This is an RME performed by Izzy Dominguez CNP: Additional HPI, ROS, PE not included below will be deferred to primary provider. Patient is a 52 year old male who presents to the emergency department reporting with R eye floaters for 5 days, now reports a change director the past day to the characteristic, its like a floating thin piece of hair , with itchiness, denies pain. Denies injury Medications Administered Discontinued Medications Generic Name Dose Route Start Last Admin Trade Name Freq PRN Reason Stop Dose Admin Fluorescein Sodium 1 strip 06/25/23 15:33 06/25/23 15:41 Fluorescein Sodium Strip EYE-RIGHT 06/25/23 15:34 1 strip ONCE ONE Administration Tetracaine HCl 1 drop 06/25/23 15:33 06/25/23 15:41 Tetracaine Hcl/Pf 0.5% Oph Marah 4 Ml Drops EYE-RIGHT 06/25/23 15:34 1 drop ONCE ONE Administration Medical Decision Making Medical Decision Making MDM Narrative: 52-year-old male with a history of hypertension presents the ER with complaints of floaters in his right eye since Monday. today he had some slight itching. He denies any injury or trauma. He denies any associated pain, vision changes, flashing lights, photophobia, discharge. No recent cough or cold symptoms. No allergy symptoms. Does use corrective lenses. No MADRID, dizziness, fevers, chills, neck pain or neck stiffness. see charted visual acuity exam otherwise is benign. normal pressure, no foreign body or corneal abrasion noted. Recommend follow-up outpatient with superintendent meters reviewed worrisome signs and symptoms of when to return to the emergency room. Comfortable plan for discharge home. Differential Diagnosis Differential Diagnoses: The differential diagnosis associated with the presentation includes Acute glaucoma, corneal foreign body, corneal abrasion, retinal detachment- less likely with gradual onset, no reports of vision loss, flashing lights, orbital cellulitis, vitreous hemorrhage Admission/Observation Consideration of admission/observation: Escalation of care including admission/observation considered Tests considered The following testing was considered but not selected: no neurological findings to require CT or MRI imaging Prescription Management I considered prescription management with: Antibiotic Chronic Conditions Patient?s care impacted by: Hypertension Discharge Plan Discharge Clinical Impression: Vitreous floaters of right eye Patient Disposition: Home, Self-Care Instructions: Visual Floaters (ED) Additional Instructions: your eye pressures are 14. There is no signs of any foreign body or scratches on the eye. You may have a small vitreous hemorrhage. I do recommend that you follow-up with your superintendent meters and you may even need to see an furnace unloader. Please return for any vision loss, flashing lights in the eye, eye pain Prescriptions: No Action ibuprofen 400 mg tablet 400 mg PO Q6H PRN (Reason: pain) Qty: 20 0RF valsartan-hydrochlorothiazide 320-12.5 mg tablet 1 tab PO DAILY Referrals: Yazan Grove MD [Primary Care Provider] - 1 week Print Language: Croatian
[2023-06-25] MEDS: Fluorescein Sodium STRIP 1 STRIP EYE-RIGHT (15:41)
[2023-06-25] MEDS: Tetracaine HCl/PF 0.5% Oph Sol 4 ML DROPS 1 DROP EYE-RIGHT (15:41)
--- NOTE | 2023-06-25 15:50 | PC.NURSE ---
pt a&ox3, visual acuity performed, pt medicated by provider bedside US performed, will continue to monitor
[2023-06-25 16:30] VITALS: BP 150/78; PULSE 62; RESP 18; TEMP 36.7
== END 2023-06-25 16:30 | disposition home or self-care (01) ==
PROVIDERS: Emergency Provider Emergency Medicine; PCP Internal Medicine
DX: H43.391 Other vitreous opacities, right eye (principal); I10 Essential (primary) hypertension
CPT/HCPCS: 99282; 99283

== ENCOUNTER 2023-08-03 00:21 | Emergency (ER) | payer OTHER, SELFPAY ==
[2023-08-03 00:24] VITALS: BP 86/53; PULSE 55; O2SAT 97
[2023-08-03 00:28] VITALS: BP 97/44; PULSE 49; RESP 20; TEMP 36.6; O2SAT 96
--- NOTE | 2023-08-03 00:40 | ECG_ITS ---
Test Reason : SYNCOPE Blood Pressure : / mmHG Vent. Rate : 062 BPM Atrial Rate : 062 BPM P-R Int : 194 ms QRS Dur : 090 ms QT Int : 440 ms P-R-T Axes : 036 036 025 degrees QTc Int : 446 ms Normal sinus rhythm Normal ECG When compared with ECG of 18-APR-2022 12:13, Vent. rate has increased BY 25 BPM T wave inversion no longer evident in Inferior leads Referred By: Generic ED Physician Electronically Signed By:GWEN SALAMANCA MD
[2023-08-03 00:43] VITALS: BP 95/52; PULSE 54; RESP 20; TEMP 36.6; O2SAT 98
[2023-08-03 00:48] LABS: MANUAL DIFF FLAG NO
[2023-08-03 00:49] LABS: Basophils Percent Auto 0.2 % (0-2); Eosinophils Absolute Auto 0.1 X10*3/uL (0.0-0.4); Eosinophils Percent Auto 1.1 % (0-4); Hematocrit 32.9 % (42.0-52.0); Hemoglobin 11.1 g/dl (14.0-18.0); Imm Gran Abs Auto 0.03 X10*3/uL (0.00-0.03); Imm Gran Pct Auto 0.3 % (0.0-0.4); Lymphocytes Absolute Auto 1.5 X10*3/uL (1.2-4.9); Lymphocytes Percent Auto 15.6 % (20-40); Mean Corpuscular HGB Conc 33.7 g/dl (31.0-36.0); Mean Corpuscular Hemoglobin 29.5 pg (27.0-33.0); Mean Corpuscular Volume 87.5 fL (80.0-98.0); Mean Platelet Volume 9.2 fL (9.4-12.4); Monocytes Absolute Auto 0.6 X10*3/uL (0.1-1.2); Monocytes Percent Auto 6.2 % (2-11); Neutrophils Absolute Auto 7.2 x10*3/uL (2.0-8.3); Neutrophils Percent Auto 76.6 % (45-73); Platelet Count 181 X10*3/uL (160-400); Red Blood Count 3.76 X10*6/uL (4.60-5.80); Red Cell Distribution Width 12.8 % (11.0-16.0); White Blood Count 9.4 X10*3/uL (4.8-10.8)
[2023-08-03 06:05] LABS: Alanine Aminotransferase 14 U/L (0-40); Albumin Level 4.2 g/dL (3.5-5.0); Alkaline Phosphatase 51 U/L (39-117); Anion Gap 13 (12-20); Aspartate Amino Transferase 14 U/L (5-37); Bilirubin Total 0.5 mg/dL (0.0-1.0); Blood Urea Nitrogen 32 mg/dL (9-16); Calcium 9.5 mg/dL (8.4-10.2); Carbon Dioxide 27 mmol/L (22-29); Chloride 103 mmol/L (96-108); Estimated Glomerular Filt Rate 47; Glucose Random 121 mg/dL (60-115); Potassium 3.3 mmol/L (3.3-5.1); Sodium 140 mmol/L (135-145); Total Protein 6.7 g/dL (6.5-8.0)
[2023-08-03 06:16] LABS: MANUAL DIFF FLAG NO
[2023-08-03 06:19] LABS: Ethanol < 10 mg/dL
[2023-08-03 06:20] LABS: Basophils Percent Auto 0.2 % (0-2); D Dimer High Sensitivity 221 NG/ML; Eosinophils Percent Auto 0.3 % (0-4); Hemoglobin 12.2 g/dl (14.0-18.0); Imm Gran Abs Auto 0.04 X10*3/uL (0.00-0.03); Imm Gran Pct Auto 0.3 % (0.0-0.4); Lymphocytes Absolute Auto 1.4 X10*3/uL (1.2-4.9); Lymphocytes Percent Auto 10.6 % (20-40); Mean Corpuscular Volume 88.1 fL (80.0-98.0); Mean Platelet Volume 9.6 fL (9.4-12.4); Monocytes Absolute Auto 0.7 X10*3/uL (0.1-1.2); Monocytes Percent Auto 5.5 % (2-11); Neutrophils Absolute Auto 10.8 x10*3/uL (2.0-8.3); Neutrophils Percent Auto 83.1 % (45-73); Platelet Count 213 X10*3/uL (160-400); Red Cell Distribution Width 12.9 % (11.0-16.0); Troponin-I High Sensitivity 4.2 ng/L (<3.5-35.0)
[2023-08-03 06:21] LABS: Lactic Acid 1.6 mmol/L (0.5-2.0)
[2023-08-03 06:24] LABS: Amphetamine Screen Urine Not Detected (Not Detect); Barbiturates, Urine Not Detected (Not Detect); Benzodiazepines Screen Urine Not Detected (Not Detect); Buprenorphine Scr Not Detected (Not Detect); Cannabinoid Screen Urine POSITIVE (Not Detect); Cocaine Screen Urine Not Detected (Not Detect); Fentanyl, urine Not Detected (Not Detect); Opiate Screen Urine Not Detected (Not Detect); Oxycodone Screen Urine Not Detected (Not Detect); Phencyclidine Screen Urine Not Detected (Not Detect)
[2023-08-03 06:26] LABS: Anion Gap 12 (12-20); Blood Urea Nitrogen 33 mg/dL (9-16); Calcium 9.6 mg/dL (8.4-10.2); Carbon Dioxide 27 mmol/L (22-29); Chloride 105 mmol/L (96-108); Creatinine Clr Calc Pharmacy 73.7; Estimated Glomerular Filt Rate 54; Glucose Random 129 mg/dL (60-115); Potassium 3.8 mmol/L (3.3-5.1); Sodium 140 mmol/L (135-145)
[2023-08-03 06:39] LABS: Methadone Screen, Urine Not Detected (Not Detect)
== END 2023-08-03 06:07 | disposition home or self-care (01) ==
PROVIDERS: Emergency Provider Emergency Medicine; PCP Internal Medicine
DX: T40.711A Poisoning by cannabis, accidental (unintentional), initial encounter (principal); R40.4 Transient alteration of awareness; Y92.009 Unspecified place in unspecified non-institutional (private) residence as the place of occurrence of the external cause; N17.9 Acute kidney failure, unspecified; R55 Syncope and collapse; I10 Essential (primary) hypertension
CPT/HCPCS: 36415; 80048; 80053; 80307; 83605; 84484; 85025; 85379; 93005; 99284

== ENCOUNTER → 2023-08-03 00:40 | Outpatient (BNV) | payer OTHER, SELFPAY | PROVIDERS: Emergency Provider Emergency Medicine; PCP Internal Medicine; Visit Provider Internal Medicine Cardiovascular Disease | DX: R55 Syncope and collapse (principal) | CPT/HCPCS: 93010 ==

== ENCOUNTER 2023-08-08 12:13 | Outpatient (REF) | payer BC, SELFPAY ==
[2023-08-08 12:44] LABS: Blood Urea Nitrogen 19 mg/dL (9-16); Estimated Glomerular Filt Rate > 60
== END 2023-08-08 12:14 | disposition home or self-care (01) ==
LOC: HO.LNP 12:13
PROVIDERS: Visit Provider Internal Medicine
DX: H43.391 Other vitreous opacities, right eye (principal)
CPT/HCPCS: 82565; 84520

== ENCOUNTER → 2023-08-25 13:06 | Outpatient (REF) | payer SELFPAY ==
--- NOTE | 2023-08-25 13:10 | HM_ITS ---
Conclusion: 1. Patient was monitored for total period of 2 days 2. Baseline was normal sinus rhythm with average heart of 63 beats per minute 3. No significant pauses noted but frequent sinus bradycardia noted with 43% of the time heart rate below 60 beats per minute 4. No significant arrhythmias noted 5. No patient reported events MTDD
== END ==
LOC: HO.CARD 13:06
PROVIDERS: PCP Internal Medicine; Visit Provider Internal Medicine
DX: I10 Essential (primary) hypertension (principal); H43.391 Other vitreous opacities, right eye; I49.3 Ventricular premature depolarization
CPT/HCPCS: 93225

== ENCOUNTER → 2023-08-25 13:10 | Outpatient (BNV) | payer BC, SELFPAY | PROVIDERS: PCP Internal Medicine; Visit Provider Internal Medicine Cardiovascular Disease | DX: R00.1 Bradycardia, unspecified (principal) | CPT/HCPCS: 93227 ==

== ENCOUNTER 2023-09-15 09:36 | Outpatient (REF) | payer BC, SELFPAY ==
--- NOTE | ~2023-09-15 | XR_ITS ---
EXAMINATION: XR LUMBOSACRAL SPINE BENDING FILMS ONLY CLINICAL INFORMATION: Spondylolisthesis. COMPARISON: June 16, 2023 TECHNIQUE: Neutral lateral, flexion and extension views of the lumbar spine were obtained. FINDINGS: Minimal anterolisthesis of L5 on S1 unchanged with flexion and extension. Minimal retrolisthesis of L1 on L2 and L2 on L3 reduces with flexion and unchanged with extension. Vertebral body heights are maintained. Moderate intervertebral disc space narrowing at L1-L2 through L3-L4. Marked facet hypertrophy at L4-L5 and L5-S1. XR/XR lumbar spine bending only IMPRESSION: Moderate lumbar spondylosis. Electronically signed by: Ricardo Calero MD 10/12/2023 10:03 AM EDT RP
== END 2023-09-15 09:37 | disposition home or self-care (01) ==
LOC: HO.XRAY 09:36
PROVIDERS: PCP Internal Medicine; Visit Provider Internal Medicine
DX: M43.16 Spondylolisthesis, lumbar region (principal)
CPT/HCPCS: 72120

== ENCOUNTER 2023-10-31 10:48 | Outpatient (REF) | payer BC, SELFPAY ==
[2023-10-31 10:52] LABS: MANUAL DIFF FLAG NO
[2023-10-31 11:00] LABS: Basophils Percent Auto 0.3 % (0-2); Eosinophils Absolute Auto 0.2 X10*3/uL (0.0-0.4); Eosinophils Percent Auto 2.8 % (0-4); Hemoglobin 12.9 g/dl (14.0-18.0); Imm Gran Abs Auto 0.01 X10*3/uL (0.00-0.03); Imm Gran Pct Auto 0.2 % (0.0-0.4); Lymphocytes Absolute Auto 1.5 X10*3/uL (1.2-4.9); Lymphocytes Percent Auto 25.6 % (20-40); Mean Corpuscular HGB Conc 33.9 g/dl (31.0-36.0); Mean Corpuscular Hemoglobin 30.3 pg (27.0-33.0); Mean Corpuscular Volume 89.2 fL (80.0-98.0); Mean Platelet Volume 10.2 fL (9.4-12.4); Monocytes Absolute Auto 0.5 X10*3/uL (0.1-1.2); Monocytes Percent Auto 8.2 % (2-11); Neutrophils Absolute Auto 3.8 x10*3/uL (2.0-8.3); Neutrophils Percent Auto 62.9 % (45-73); Platelet Count 240 X10*3/uL (160-400); Red Blood Count 4.26 X10*6/uL (4.60-5.80)
[2023-10-31 11:07] LABS: Appearance Urine Cloudy; Color Urine Yellow; Glucose Urine UA Negative (Negative); Leukocyte Esterase Urine Negative (Negative); Nitrite Urine Negative (Negative); PH 5.5 (5.0-9.0); UMIC TRIGGER UACC YES; Urine Blood Small (1+) (Negative); Urine Ketones Negative (Negative); Urine Protein Negative (Neg-Trace)
[2023-10-31 11:14] LABS: Bacteria Urine None Seen (None Seen); Hyaline Casts Urine 0-2 /LPF (0-2); Squamous Epithelial Cell Urine 0-2 /HPF (0-2); WBC Urine 0-5 /HPF (0-5)
[2023-10-31 11:25] LABS: Alanine Aminotransferase 17 U/L (0-40); Albumin Level 4.8 g/dL (3.5-5.0); Alkaline Phosphatase 65 U/L (39-117); Anion Gap 11 (12-20); Aspartate Amino Transferase 17 U/L (5-37); Bilirubin Total 0.5 mg/dL (0.0-1.0); Blood Urea Nitrogen 19 mg/dL (9-16); Calcium 9.7 mg/dL (8.4-10.2); Carbon Dioxide 29 mmol/L (22-29); Chloride 105 mmol/L (96-108); Cholesterol 186 mg/dL (<200); Estimated Average Glucose 117 mg/dL; Estimated Glomerular Filt Rate > 60; Glucose Fasting 109 mg/dL (60-99); HDL Cholesterol 47 mg/dL (>40); Hemoglobin A1c % 5.7 % (<6.0); LDL Cholesterol Calculated 118 mg/dL (<100); Potassium 3.8 mmol/L (3.3-5.1); Sodium 141 mmol/L (135-145); Total Protein 7.8 g/dL (6.5-8.0); Triglycerides 105 mg/dL (<150)
[2023-10-31 11:34] LABS: PSA,Total (Free>4and<10) 0.43 ng/mL (0.00-4.00)
[2023-10-31 12:15] LABS: Creatinine Urine 175.49 mg/dL; Microalbum/Creatinine Ratio Ur 6.8 ug/mg cr (<30)
== END 2023-10-31 10:49 | disposition home or self-care (01) ==
LOC: HO.LNP 10:48
PROVIDERS: Visit Provider Internal Medicine
DX: Z00.00 Encounter for general adult medical examination without abnormal findings (principal); R73.09 Other abnormal glucose; D72.829 Elevated white blood cell count, unspecified; E78.6 Lipoprotein deficiency; Z12.5 Encounter for screening for malignant neoplasm of prostate
CPT/HCPCS: 80053; 80061; 81001; 81003; 82043; 82570; 83036; 84153; 85025

== ENCOUNTER 2024-11-05 07:30 | Outpatient (REF) | payer BC, SELFPAY ==
--- OUTSIDE RECORDS SUMMARY | 2023-10-13 09:23 | XMS_ITS ---
Author Organization Yazan Grove MD Address [address] [place] [phone] Care Team Providers Care Relocation Commissioner Name Role Phone Yazan Grove Primary Care Provider REASON FOR VISIT ? P-A for Auvi-Q Encounters Encounter Location Date Provider Diagnosis Yazan Grove MD [facility] [address] [place] [phone] 10/13/2023 Yazan Grove Plan Of Treatment Next Appt Details Provider Name:Yazan Oliva ier, 11/26/2024 08:30:00 AM, 10 [facility], [address], [phone], Progress Notes * Nickolas SELBYOB:1970 ([age] yo M)Acc No.[id number]:10/13/2023 Patient: Antwon Kimbrough :1970 A ge:53 Y S ex:Male Address:[address] [place], [place] [address], [place] [address] * true * Date: Generated for María khan/Ping/Mahad on: 0 11/05/2024 01:29 PM EDT
--- OUTSIDE RECORDS SUMMARY | 2023-10-31 03:45 | XMS_ITS ---
Author Organization Yazan Grove MD Address [address] [place] [phone] Care Team Providers Care Electric Blanket Packer Name Role Phone Yazan Grove Primary Care Provider [phone] Results Component Value Reference Range Notes Complete Blood Count Auto Di ff Reviewed date:10/31/2023 12:10:13 PM Interpretation: Performing Lab:[facility], [address] [place] [phone] Notes/Report: White Blood Count 6.0 4.8-10.8 X10*3/uL Red Blood Count 4.26 4.60-5.80 X10*6/uL Hemoglobin 12.9 14.0-18.0 g/dl Hematocrit 38.0 42.0-52.0 % Mean Corpuscular Volume 89.2 80.0-98.0 fL Mean Corpuscular Hemoglobin 30.3 27.0-33.0 pg Mean Corpuscular HGB Conc 33.9 31.0-36.0 g/dl Red Cell Distribution Width 13.0 11.0-16.0 % Platelet Count 240 160-400 X10*3/uL Mean Platelet Volume 10.2 9.4-12.4 fL Neutrophils Percent Auto 62.9 45-73 % Imm Gran Pct Auto 0.2 0.0-0.4 % Lymphocytes Percent Auto 25.6 20-40 % Monocytes Percent Auto 8.2 2-11 % Eosinophils Percent Auto 2.8 0-4 % Basophils Percent Auto 0.3 0-2 % NRBC Pct Auto 0.0 0.0-0.2 /100WBC Neutrophils Absolute Auto 3.8 2.0-8.3 x10*3/u L Imm Gran Abs Auto 0.01 0.00-0.03 X10*3/uL Lymphocytes Absolute Auto 1.5 1.2-4.9 X10*3/u L Monocytes Absolute Auto 0.5 0.1-1.2 X10*3/uL Eosinophils Absolute Auto 0.2 0.0-0.4 X10*3/u L Basophils Absolute Auto 0.0 0.0-0.2 X10*3/uL NRBC Abs Auto 0.000 0.0-0.012 X10*3/uL Comprehensive [place]. Panel Fa st Reviewed date:10/31/2023 11:37:13 AM Interpretation: Performing Lab:[facility], [address] [place] [phone] Notes/Report: Sodium 141 135-145 mmol/L Potassium 3.8 3.3-5.1 mmol/L Chloride 105 96-108 mmol/L Carbon Dioxide 29 22-29 mmol/L Anion Gap 11 12-20 Blood Urea Nitrogen 19 9-16 mg/dL Creatinine 0.90 0.5-1.4 mg/dL Estimated Glomerular Filt Rate > 60 NOTE: For -[place] individuals, multiply the result by 1.210. Chronic Kidney Disease: Estimated GFR < 60 mL/min/1.73m2 Severe Kidney Disease: Estimated GFR < 15 mL/min/1.73m2 Glucose Fasting 109 60-99 mg/dL A fasting glucose from 100-125 mg/dl is considered impaired (pre-diabetes). Calcium 9.7 8.4-10.2 mg/dL Bilirubin Total 0.5 0.0-1.0 mg/dL Aspartate Amino Transferase 17 5-37 U/L Alanine Aminotransferase 17 0-40 U/L Total Protein 7.8 6.5-8.0 g/dL Albumin Level 4.8 3.5-5.0 g/dL Alkaline Phosphatase 65 39-117 U/L Lipid Panel Reviewed date:10/31/2023 11:37:47 AM Interpretation: Performing Lab:[facility], [address] [place] [phone] Notes/Report: Triglycerides 105 <150 mg/dL Desirable Triglyceride: less than 150 mg/dL Borderline High Triglyceride 150-199 mg/dL High Triglyceride: 200-499 mg/dL Very High Triglyceride: greater than or equal to 5OO mg/dL Cholesterol 186 <200 mg/dL Desirable Cholesterol: less than 200 mg/dL Borderline High Cholesterol: 200-239 mg/dL High Cholesterol: greater than 239 mg/dL LDL Cholesterol Calculated 118 <100 mg/dL Desirable LDL: less than 100 mg/dL Near Optimal/Above Optimal LDL: 110-129 mg/dL Borderline High LDL: 130-159 mg/dL High LDL: 160-189 mg/dL Very High LDL: greater than or equal to 190 mg/dL HDL Cholesterol 47 >40 mg/dL Desirable HDL: greater than 40 mg/dL Note: This HDL assay may give artificially low results in patients with liver disease. PSA,Total (Free>4and<10) Reviewed date:10/31/2023 11:37:36 AM Interpretation: Performing Lab:[facility], [address] [place] [phone] Notes/Report: PSA,Total (Free>4and<10) 0.43 0.00-4.00 ng/mL A Free PSA was not performed: The percentage of Free PSA can be used to enhance the differentiation of prostate cancer from benign prostatic disease in subjects whose PSA levels are between 4.0 and 10.0 ng/mL. For subjects whose PSA levels are below 4.0 or above 10.0 ng/mL, the risk of prostate cancer is determined on the basis of the PSA alone. Therefore the % Free PSA is recommended only for those subjects whose PSA levels are between 4.0 and 10.0 ng/mL. PSA methodology: Marcos Alinity i Chemiluminescent Microparticle Immunoassay (CMIA) Microalbumin, Random Reviewed date:10/31/2023 12:24:10 PM Interpretation: Performing Lab:[facility], [address] [place] [phone] Notes/Report: Creatinine Urine 175.49 Microalbumin Urine 12.0 Microalbum/Creatinine Ratio Ur 6.8 <30 ug/mg cr Albumin/Creatinine Ratio Reference Ranges: Normal: < 30 ug/mg creatinine Microalbuminuria: 30 - 300 ug/mg creatinine Clinical Albuminuria: > 300 ug/mg creatinine Hemoglobin A1c Reviewed date:10/31/2023 11:52:48 AM Interpretation: Performing Lab:[facility], [address] [place] [phone] Notes/Report: Hemoglobin A1c % 5.7 <6.0 % Hemoglobin A1C Reference Range Adults: 4.8 - 6.0 % Non diabetic: < 6.0 % Goal: < 7.0 % Additional Action Suggested: > 8.0 % Note: Hemoglobin A1c results are invalid for patients with abnormal amounts of HbF. Blood transfusions may impact the HbA1c concentration in the patient sample. Estimated Average Glucose 117 eAG = Estimated average glucose which is %A1C expressed as average glucose, using the formula of the [id number] Average Glucose study (ADAG), Diabetes Care, Vol.31,#8, Sep. 2007 UA ClnCatch+Micro w/rflx Cul t Reviewed date:10/31/2023 12:23:40 PM Interpretation: Performing Lab:[facility], [address] [place] [phone] Notes/Report: Urine, Clean Catch Color Urine Yellow Appearance Urine Cloudy PH 5.5 5.0-9.0 Glucose Urine UA Negative Negative mg/dL Urine Blood Small (1+) Negative Specific [place] - Urine 1.020 1.005-1.025 Urine Protein Negative Neg-Trace mg/dL Urine Ketones Negative Negative mg/dL Nitrite Urine Negative Negative Leukocyte Esterase Urine Negative Negative RBC Urine 3-5 0-2 /HPF WBC Urine 0-5 0-5 /HPF Squamous Epithelial Cell Urine 0-2 0-2 /HPF Bacteria Urine None Seen None Seen Hyaline Casts Urine 0-2 0-2 /LPF REASON FOR VISIT FASTING LABS Immunizations Vaccine Route Administration Date Status Comme nts Fluarix Quadrivalent - 150 IM Intramuscular 10/31/2023 Adm inistered Encounters Encounter Location Date Provider Diagnosis Yazan Grove MD [address] [place] [address] [address] [place], [place] [phone] 10/31/2023 Yazan Grove Blood tests for routine general physical examination Z00.00 ; Prediabetes R73.09 ; Elevated white blood cell count D72.829 ; Encounter for immunization Z23 and Low HDL (under 40) E78.6 Assessments Encounter Date Diagnosis (ICD Code) Assessment Notes Treatment Notes Treatment Clinical Notes Section Notes 10/31/2023 Blood tests for routine general physical examination (ICD-10 - Z00.00) 10/31/2023 Prediabetes (ICD-10 - R73.09) 10/31/2023 Elevated white blood cell count (ICD-10 - D72.829) 10/31/2023 Encounter for immunization (ICD-10 - Z23) 10/31/2023 Low HDL (under 40) (ICD-10 - E78.6) Plan Of Treatment Next Appt Details Provider Name:Yazan Oliva ier, 11/26/2024 08:30:00 AM, [facility], [address], [place], [place], [phone], Progress Notes * Lissy SELBYConnieOB:1970 ([age] yo M)Acc No.[id number]:10/31/2023 Progress Note Patient: Antwon HARRIS Provider: Karla Grove MD :1970 A ge:53 Y S ex:Male Date:10/31/2023 Address:[address] [place], [place] [phone] Subjective: * Chief Complaints: * 1 . FASTING LABS. * Medical History: Objective: * Vitals: Assessment: * Assessment: 1. B lood tests for routine general physical examination - Z00.00 (Primary) 2 .?Prediabetes - R73.09 3 . E levated white blood cell count - D72.829 ? 4 . E ncounter for immunization - Z23 5 . L ow HDL (under 40) - E78.6 Plan: * Treatment: 2. P rediabetes L AB: Complete Blood Count Auto Diff (Collection Date & Time - 10/31/2023 07:30 AM) L AB: Comprehensive [place]. Panel Fast (Collection Date & Time - 10/31/2023 07:30 AM) L AB: Lipid Panel (Collection Date & Time - 10/31/2023 07:30 AM) L AB: PSA,Total (Free>4and<10) (Collection Date & Time - 10/31/2023 07:30 AM) L AB: Microalbumin, Random (Collection Date & Time - 10/31/2023 07:30 AM) L AB: Hemoglobin A1c (Collection Date & Time - 10/31/2023 07:30 AM) L AB: UA ClnCatch+Micro w/rflx Cult (Collection Date & Time - 10/31/2023 07:30 AM) 3. E levated white blood cell count L AB: Complete Blood Count Auto Diff (Collection Date & Time - 10/31/2023 07:30 AM) L AB: Comprehensive [place]. Panel Fast (Collection Date & Time - 10/31/2023 07:30 AM) L AB: Lipid Panel (Collection Date & Time - 10/31/2023 07:30 AM) L AB: PSA,Total (Free>4and<10) (Collection Date & Time - 10/31/2023 07:30 AM) L AB: Microalbumin, Random (Collection Date & Time - 10/31/2023 07:30 AM) L AB: Hemoglobin A1c (Collection Date & Time - 10/31/2023 07:30 AM) L AB: UA ClnCatch+Micro w/rflx Cult (Collection Date & Time - 10/31/2023 07:30 AM) 4. L ow HDL (under 40) L AB: Complete Blood Count Auto Diff (Collection Date & Time - 10/31/2023 07:30 AM) L AB: Comprehensive [place]. Panel Fast (Collection Date & Time - 10/31/2023 07:30 AM) L AB: Lipid Panel (Collection Date & Time - 10/31/2023 07:30 AM) L AB: PSA,Total (Free>4and<10) (Collection Date & Time - 10/31/2023 07:30 AM) L AB: Microalbumin, Random (Collection Date & Time - 10/31/2023 07:30 AM) L AB: Hemoglobin A1c (Collection Date & Time - 10/31/2023 07:30 AM) L AB: UA ClnCatch+Micro w/rflx Cult (Collection Date & Time - 10/31/2023 07:30 AM) * Immunizations: Fluarix Quadrivalent - 150 : 0.5 mL (Dose No:1) (Route: Intramuscular) given by Roseann Sanchez , Office Staff on Right Deltoid * Procedure Codes: 3 6415 VENIPUNCT, ROUTINE*, 66344 IMMUNIZATION ADMIN, 62646 FLU VACCINE NO PRESERV 3 & > * * The named appointment provid er may or may not be the originator of this progress note, and it is not deemed complete until electronically signed by the appointment provider. Sign off status: Pending * Provider: Karla Grove MD Date: 0 10/31/2023 Generated for María khan/Ping/Corineitting on: 11/05/2024 01:30 PM EDT
--- OUTSIDE RECORDS SUMMARY | 2023-11-07 05:30 | XMS_ITS ---
Author Organization Yazan Grove MD Address [address] [place] [phone] Care Team Providers Care Topstitcher Lockstitch Name Role Phone Yazan Grove Primary Care Provider Allergies Allergen (clinical drug ingredient) Drug/Non Drug Allergy documented on EMR Reaction Allergy Type Onset Date Status bee stings (uncoded) hives and swelling Allergy Active Results Component Value Reference Range Notes Occult Blood, Stool, Guaiac Reviewed date:11/07/2023 11:02:47 AM Interpretation:Negative Performing Lab: Notes/Report: Negative Occult Blood, Stool, Guaiac Neg REASON FOR VISIT ANNUAL EXAM Medications Medication SIG (Take, Route, Frequency, Duration) Notes Start Date End Date Status Auvi-Q 0.3 MG/0.3ML as directed Injectio n as needed for 2 days 08/26/2014 Active Ibuprofen 600 MG 1 tablet with food o r milk as needed Orally Three times a day Not-Taking Diclofenac Sodium 75 MG 1 tablet with fo od or milk Orally once per day for 30 days Not-Taking Valsartan-hydroCHLOROthi azide 320-12.5 MG TAKE 1 TABLET BY MOUTH EVERY DAY Active Social History Tobacco Use: Social History Observation Description Date Details (start date - stop date) Never Smoker NA - NA Tobacco Use/Smoking Question Answer Notes Patient is a nonsmoker Additional Findings: Tobacco Non-User Cu rrent non-smoker, currently using no form of tobacco Alcohol Screen Question Answer Notes Did you have a drink contain ing alcohol in the past year? Yes How often did you have a dri nk containing alcohol in the past year? Monthly or less (1 point) How many drinks did you have on a typical day when you were drinking in the past year? 1 or 2 drinks (0 point) How often did you have 6 or more drinks on one occasion in the past year? Never (0 point) Points 1 Interpretation Negative Vital Signs Blood pressure systolic 112 mm Hg 11/07/19 24 Blood pressure diastolic 80 mm Hg 024 Height 70.5 in 11/07/2023 Weight 211 lbs 11/07/2023 BMI 29.84 kg/m2 11/07/2023 Encounters Encounter Location Date Provider Diagnosis Yazan Grove MD [address] [place] [address] [place] [phone] 11/07/2023 Yazan Grove Spinal stenosis of lumbar region without neurogenic claudication M48.061 ; Annual physical exam Z00.00 ; Low HDL (under 40) E78.6 ; Prediabetes R73.09 ; Essential hypertension I10 ; Colon cancer screening Z12.11 and Depression screening Z13.31 Assessments Encounter Date Diagnosis (ICD Code) Assessment Notes Treatment Notes Treatment Clinical Notes Section Notes 11/07/2023 Spinal stenosis of lumbar region without neurogenic claudication (ICD-10 - M48.061) is going to physical therapy. hopefully will get injected 11/07/2023 Annual physical exam (ICD-10 - Z00.00) labs reviewed and discussed ith patient 11/07/2023 Low HDL (under 40) (ICD-10 - E78.6) 11/07/2023 Prediabetes (ICD-10 - R73.09) stable, no need for medication at this time, will continue to monitor 11/07/2023 Essential hypertension (ICD-10 - I10) stable , at goal, will continue current regiment 11/07/2023 Colon cancer screening (ICD-10 - Z12.11) guaiac negative 11/07/2023 Depression screening (ICD-10 - Z13.31) negative screen Plan Of Treatment Medication Medication Name Sig Start Date Stop Date Notes Valsartan-hydroCHLOROthiazid e 320-12.5 MG TAKE 1 TABLET BY MOUTH EVERY DAY Treatment Notes Assessment Notes Spinal stenosis of lumbar re gion without neurogenic claudication is going to physical therapy. hopefully will get injected Annual physical exam labs reviewed and d iscussed ith patient Prediabetes stable, no need for medication at this time, will continue to monitor Essential hypertension stable , at goal, will continue current regiment Colon cancer screening guaiac negative Depression screening negative screen Next Appt Details Follow Up: 3 Months, Reason: Provider Name:Yazan Oliva ier, 11/26/2024 08:30:00 AM, [address] [place] [address], [address], [place], [place], [phone], Progress Notes * Lissy SELBYConnieOB:1970 ([age] yo M)Acc No.[id number]:11/07/2023 Progress Notes Patient: Antwon Kimbrough Provider: Karla Grove MD :1970 A ge:53 Y S ex:Male Date:11/07/2023 Address:[address] [place], [place] [phone] Subjective: * Chief Complaints: * A NNUAL EXAM * HPI: D epression Screening: PHQ-9 L ittle interest or pleasure in doing things N ot at all, F eeling down, depressed, or hopeless N ot at all, T rouble falling or staying asleep, or sleeping too much N ot at all, F eeling tired or having little energy N ot at all, P oor appetite or overeating N ot at all, F eeling bad about yourself or that you are a failure, or have let yourself or your family down N ot at all, T rouble concentrating on things, such as reading the newspaper or watching television N ot at all, M oving or speaking so slowly that other people could have noticed; or the opposite, being so fidgety or restless that you have been moving around a lot more than usual N ot at all, T houghts that you would be better off or of hurting yourself in some way N ot at all, T otal Score 0 . I nterpretation and Intervention D epression Screening Findings N egative, F ollow-Up for Depression : review of PHQ-9 found negative result, no follow-up needed. C ommunication Needs: Communication Needs D oes the patient have a hearing impairment N o, D oes the patient have a vision impairment? Y es, I f yes, what is the vision impairment? G lasses, D oes the patient have a cognition impairment? N o. S ANGELICA Questions: SDOH Questions I n the past year have you been worried about losing housing? N o, I n the past year have you or any family members you live with been unable to get any of the following when it was really needed? Check all that apply: N one. S ymptom(s): patient is a 53 yo male here for annual visitwith review of recent labs and follow up of chronic issues. * ROS: G eneral/Constitutional: Patient denies f atigue , headache. C hange in appetite?denies. C hills d enies. F ever d enies. O phthalmologic: Blurred vision d enies. D ischarge d enies. P ain d enies. E NT: Patient denies d ecreased sense of smell , any loss of taste , sore throat. D ecreased hearing d enies. S ore throat d enies. S wollen glands d enies. E ndocrine: Cold intolerance d enies. E xcessive thirst d enies. H eat intolerance d enies. W eight loss d enies. R espiratory: Cough d enies. S hortness of breath at rest d enies. S hortness of breath with exertion d enies. W heezing d enies. C ardiovascular: Chest pain at rest d enies. C hest pain with exertion?denies. I rregular heartbeat d enies. S hortness of breath d enies. ? G astrointestinal: Abdominal pain d enies. C hange in bowel habits d enies. D iarrhea d enies. N ausea d enies. R ectal bleeding d enies. V omiting d enies . G enitourinary: Blood in urine d enies. D ifficulty urinating d enies. F requent urination d enies. M usculoskeletal: Patient denies m uscle aches. P ainful joints d enies. W eakness d enies. P eripheral Vascular: Patient denies r ed and blue toes. S kin: Dry skin d enies. I tching d enies. D enies?Mole(s), changes in moles, new moles or any lesions of concern. D enies P hotosensitivity. R catherine d enies. N eurologic: Dizziness d enies. F ainting d enies. H eadache?denies. * Medical History: * Surgical History: * Hospitalization/Major Diagno stic Procedure: * Family History: F ather: 62 yrs, glioblastoma, diagnosed with Asthma, Diabetes. M other: alive 75 yrs, diagnosed with Hypertension. 3 brother(s) . 1 son(s) , 2 daughter(s) - healthy. . Dad - brain tumor; one brother has asthma, Denies mental health/substance abuse family history, Denies mental health/substance abuse family history, Denies mental health/substance abuse family history, Denies mental health/substance abuse family history, Denies mental health/substance abuse family history. * Social History: T obacco Use: T obacco Use/Smoking P atient is a n onsmoker, A dditional Findings: Tobacco Non-User C urrent non-smoker, currently using no form of tobacco. D rugs/Alcohol: A lcohol Screen D id you have a drink containing alcohol in the past year? Y es, H ow often did you have a drink containing alcohol in the past year? M onthly or less (1 point), H ow many drinks did you have on a typical day when you were drinking in the past year? 1 or 2 drinks (0 point), H ow often did you have 6 or more drinks on one occasion in the past year? N ever (0 point), P oints 1 , I nterpretation N egative. M iscellaneous: C affeine: yes, frequency: 12 can of soda twice a week. Children: yes. Community involvements: yes. Exercise: yes, yoga cardio weights. Home smoke detector use: yes. Housing: owning. Living with: family. Marital status: . Occupation: works full-time. Pets: cats x2. Travel outside of the [place]: yes, [place]. * Medications: T akingValsartan-hydroCHLOROthiazide 320-12.5 MG Tablet TAKE 1 TABLET BY MOUTH EVERY DAY Auvi-Q 0.3 MG/0.3ML Solution Auto-injector as directed Injection as neededTaking Valsartan-hydroCHLOROthiazide 320-12.5 MG Tablet TAKE 1 TABLET BY MOUTH EVERY DAY Taking Auvi-Q 0.3 MG/0.3ML Solution Auto-injector as directed Injection as neededNot-Taking/PRNIbuprofen 600 MG Tablet 1 tablet with food or milk as needed Orally Three times a dayDiclofenac Sodium 75 MG Tablet Delayed Release 1 tablet with food or milk Orally once per dayMedication List reviewed and reconciled with the patientNot-Taking/PRN Ibuprofen 600 MG Tablet 1 tablet with food or milk as needed Orally Three times a dayNot-Taking/PRN Diclofenac Sodium 75 MG Tablet Delayed Release 1 tablet with food or milk Orally once per dayMedication List reviewed and reconciled with the patient * Allergies: b ee stings: hives and swellingyes[Allergies Verified] Objective: * Vitals: H t: 70.5, Wt:211, BMI:29.84, BP:112/80. * P ast Orders: L ab:Hemoglobin A1c (Order Date - 10/31/2023) (Collection Date - 10/31/2023) Value Reference Range Hemoglobin A1c % 5.7 <6.0 - % Estimated Average Glucose 117 - mg/dL L ab:Microalbumin, Random (Order Date - 10/31/2023) (Collection Date - 10/31/2023) Value Reference Range Creatinine Urine 175.49 - mg/dL Microalbumin Urine 12.0 - mg/L Microalbum Creatinine Ratio Ur 6.8 <30 - ug/ mg cr L ab:PSA,Total (Free>4and<10) (Order Date - 10/31/2023) (Collection Date - 10/31/2023) Value Reference Range PSA,Total (Free>4and<10) 0.43 0.00-4.00 - ng/ mL L ab:Lipid Panel (Order Date - 10/31/2023) (Collection Date - 10/31/2023) Value Reference Range Triglycerides 105 <150 - mg/dL Cholesterol 186 <200 - mg/dL LDL Cholesterol Calculated 118 H <100 - mg/dL HDL Cholesterol 47 >40 - mg/dL L ab:UA CC w/rflx Micro + Cult (Order Date 10/31/2023) (Collection Date 10/31/2023) Value Reference Range Color Urine Yellow - Appearance Urine Cloudy - PH 5.5 5.0-9.0 - Glucose Urine UA Negative Negative - mg/dL Urine Blood Small (1+) A Negative - Specific [place] - Urine 1.020 1.005-1.025 - Urine Protein Negative Neg-Trace - mg/dL Urine Ketones Negative Negative - mg/dL Nitrite Urine Negative Negative - Leukocyte Esterase Urine Negative Negative - L ab:Comprehensive [place]. Panel Fast (Order Date 10/31/2023) (Collection Date 10/31/2023) Value Reference Range Sodium 141 135-145 - mmol/L Bilirubin Total 0.5 0.0-1.0 - mg/dL Aspartate Amino Transferase 17 5-37 - U/L Alanine Aminotransferase 17 0-40 - U/L Total Protein 7.8 6.5-8.0 - g/dL Albumin Level 4.8 3.5-5.0 - g/dL Alkaline Phosphatase 65 39-117 - U/L Potassium 3.8 3.3-5.1 - mmol/L Chloride 105 96-108 - mmol/L Carbon Dioxide 29 22-29 - mmol/L Anion Gap 11 L 12-20 - Blood Urea Nitrogen 19 H 9-16 - mg/dL Creatinine 0.90 0.5-1.4 - mg/dL Estimated Glomerular Filt Rate > 60 - Glucose Fasting 109 H 60-99 - mg/dL Calcium 9.7 8.4-10.2 - mg/dL L ab:UA ClnCatch+Micro w/rflx Cult (Order Date 10/31/2023) (Collection Date - 10/31/2023) Value Reference Range Color Urine Yellow - Appearance Urine Cloudy - PH 5.5 5.0-9.0 - Glucose Urine UA Negative Negative - mg/dL Urine Blood Small (1+) A Negative - Specific [place] - Urine 1.020 1.005-1.025 - Urine Protein Negative Neg-Trace - mg/dL Urine Ketones Negative Negative - mg/dL Nitrite Urine Negative Negative - Leukocyte Esterase Urine Negative Negative - RBC Urine 3-5 A 0-2 - /HPF WBC Urine 0-5 0-5 - /HPF Squamous Epithelial Cell Urine 0-2 0-2 - /HP F Bacteria Urine None Seen None Seen - Hyaline Casts Urine 0-2 0-2 - /LPF L ab:Complete Blood Count Auto Diff (Order Date - 10/31/2023) (Collection Date - 10/31/2023) Value Reference Range White Blood Count 6.0 4.8-10.8 - X10*3/uL Red Blood Count 4.26 L 4.60-5.80 - X10*6/uL Hemoglobin 12.9 L 14.0-18.0 - g/dl Hematocrit 38.0 L 42.0-52.0 - % Mean Corpuscular Volume 89.2 80.0-98.0 - fL Mean Corpuscular Hemoglobin 30.3 27.0-33.0 - pg Mean Corpuscular HGB Conc 33.9 31.0-36.0 - g/ dl Red Cell Distribution Width 13.0 11.0-16.0 - % Platelet Count 240 160-400 - X10*3/uL Mean Platelet Volume 10.2 9.4-12.4 - fL Neutrophils Percent Auto 62.9 45-73 - % Imm Gran Pct Auto 0.2 0.0-0.4 - % Lymphocytes Percent Auto 25.6 20-40 - % Monocytes Percent Auto 8.2 2-11 - % Eosinophils Percent Auto 2.8 0-4 - % Basophils Percent Auto 0.3 0-2 - % NRBC Pct Auto 0.0 0.0-0.2 - /100WBC Neutrophils Absolute Auto 3.8 2.0-8.3 - x10* 3/uL Imm Gran Abs Auto 0.01 0.00-0.03 - X10*3/uL Lymphocytes Absolute Auto 1.5 1.2-4.9 - X10* 3/uL Monocytes Absolute Auto 0.5 0.1-1.2 - X10*3/ uL Eosinophils Absolute Auto 0.2 0.0-0.4 - X10* 3/uL Basophils Absolute Auto 0.0 0.0-0.2 - X10*3/ uL NRBC Abs Auto 0.000 0.0-0.012 - X10*3/uL * Examination: G eneral Examination: GENERAL APPEARANCE: w ell developed, well nourished, in no acute distress. HEAD: n ormocephalic, atraumatic. EYES: p upils equal, round, reactive to light and accommodation, sclera non-icteric. EARS: n ormal. ORAL CAVITY: m ucosa moist. THROAT: c lear. NECK/THYROID: n areli supple, full range of motion, no cervical lymphadenopathy, no bruits. SKIN: w arm and dry, no suspicious lesions. HEART: r egular rate and rhythm, S1, S2 normal, no murmurs.? LUNGS: c lear to auscultation bilaterally. ABDOMEN: s oft, nontender, nondistended, bowel sounds present, normal, no organomegaly , no masses palpable. RECTAL EXAM: n ormal tone, no external hemorrhoids, no masses palpable, prostate normal, stool guaiac negative. MALE GENITOURINARY: a bnormal with a epididimal cyst unchanged on rt. EXTREMITIES: n o clubbing, cyanosis, or edema. NEUROLOGIC: n onfocal, motor strength normal upper and lower extremities, sensory exam intact. Assessment: * Assessment: 1. A nnual physical exam - Z00.00 (Primary) 2 . S robby stenosis of lumbar region without neurogenic claudication - M48.061 3 . L ow HDL (under 40) - E78.6 4 . P rediabetes - R73.09 5 . E ssential hypertension - I10 6 . C olon cancer screening - Z12.11 7. D epression screening - Z13.31 Plan: * Treatment: 2. S orbby stenosis of lumbar region without neurogenic claudication Notes: is going to physical therapy. hopefully will get injected 3. P rediabetes Notes: stable, no need for medication at this time, will continue to monitor 4. E ssential hypertension Continue Valsartan-hydroCHLOROthiazide Tablet, 320-12.5 MG, TAKE 1 TABLET BY MOUTH EVERY DAY. ? Notes: stable , at goal, will continue current regiment 5. C olon cancer screening L AB: Occult Blood, Stool, Guaiac N egative Value Reference Range O ccult Blood, Stool, Guaiac Neg Notes: guaiac negative??6.?Depression screening? Notes: negative screen?? * Procedure Codes: 8 2270 TEST FOR BLOOD, FECES * Preventive Medicine: Counseling: C are goal follow-up plan: C ounseling for abnormal BMI provided?Yes, A jackie Normal BMI Follow-up G iving encouragement to exercise. * Follow Up: 3 Months * * Sign off status: Completed true * Provider: Karla Grove MD Date: 1 Generated for María khan/Ping/Mahad on: 0 11/05/2024 01:29 PM EDT History and Physical Notes * HPI (History of Present Illness) Category Sub-Category Detail Notes Category Not es Symptom(s) patient is a 53 yo male here for annual visitwith review of recent labs and follow up of chronic issues. Depression Screening PHQ-9 Little inte rest or pleasure in doing things: Not at all Feeling down, depressed, or hopeless: No t at all Trouble falling or staying asleep, or sl eeping too much: Not at all Feeling tired or having little energy: N ot at all Poor appetite or overeating: Not at all Feeling bad about yourself o r that you are a failure, or have let yourself or your family down: Not at all Trouble concentrating on thi ngs, such as reading the newspaper or watching television: Not at all Moving or speaking so slowly that other people could have noticed; or the opposite, being so fidgety or restless that you have been moving around a lot more than usual: Not at all Thoughts that you would be b dori off or of hurting yourself in some way: Not at all Total Score: 0 Interpretation and Intervention Depression Yareli alcantara Findings: Negative Follow-Up for Depression: : review of PH Q-9 found negative result, no follow-up needed SDOH Questions SDOH Questions In the past year have you been worried about losing housing?: No In the past year have you or any family members you live with been unable to get any of the following when it was really needed? Check all that apply:: None Communication Needs Communication Needs Does the patient have a hearing impairment: No Does the patient have a vision impairmen t?: Yes If yes, what is the vision impairment?: Glasses Does the patient have a cognition impair ment?: No Examination Category Sub-Category Detail Notes Category Not es General Examination GENERAL APPEARANCE: well dev eloped, well nourished, in no acute distress HEAD: normocephalic, atrau matic EYES: pupils equal, round, reactive to light and accommodation, sclera non-icteric EARS: normal THROAT: clear NECK/THYROID: neck supple, full ra nge of motion, no cervical lymphadenopathy, no bruits HEART: regular rate and rhy thm, S1, S2 normal, no murmurs LUNGS: clear to auscultatio n bilaterally ABDOMEN: soft, nontender, non distended, bowel sounds present, normal, no organomegaly , no masses palpable NEUROLOGIC: nonfocal, motor stre ngth normal upper and lower extremities, sensory exam intact SKIN: warm and dry, no andrey picious lesions EXTREMITIES: no clubbing, cyanosi s, or edema MALE GENITOURINARY: abnormal with a epid idimal cyst unchanged on rt RECTAL EXAM: normal tone, no exte rnal hemorrhoids, no masses palpable, prostate normal, stool guaiac negative ORAL CAVITY: mucosa moist
--- OUTSIDE RECORDS SUMMARY | 2024-02-09 05:00 | XMS_ITS ---
Author Organization Yazan Grove MD Address [address] [place] [phone] Care Team Providers Care Slip Filler Name Role Phone Yazan Grove Primary Care Provider Allergies Allergen (clinical drug ingredient) Drug/Non Drug Allergy documented on EMR Reaction Allergy Type Onset Date Status bee stings (uncoded) hives and swelling Allergy Active Results Component Value Reference Range Notes Hemoglobin A1c Reviewed date:02/09/2024 09:14:11 AM Interpretation: Performing Lab: Notes/Report: Hemoglobin A1c 6.0 Glucose, finger stick Reviewed date:02/09/2024 09:03:01 AM Interpretation: Performing Lab: Notes/Report: Value 143 Reason For Referral Reason lumbago with sciatic a lft side Diagnosis 1 Lumbago with sciatic a, left side (M54.42) Referral Organization Yazan Grove MD Referring Provider First Name Yazan Referring Provider Last Name Perfecto Referring Provider Speciality Internal M edicine Referred Provider Isidra Garcia Referred Provider Specialty Pain Medicin e General Notes Annette Penn 0 02/16/2024 11:52:13 AM >info faxed npi Dr. Garcia f [phone] visits Referral Priority Routine Referral Appointment Date 02/20/2024 REASON FOR VISIT 3 month Medications Medication SIG (Take, Route, Frequency, Duration) Notes Start Date End Date Status Diclofenac Sodium 75 MG 1 tablet with fo od or milk Orally once per day for 30 days Not-Taking Valsartan-hydroCHLOROthi azide 320-12.5 MG TAKE 1 TABLET BY MOUTH EVERY DAY Active Auvi-Q 0.3 MG/0.3ML as directed Injectio n as needed for 2 days 08/26/2014 Active Ibuprofen 600 MG 1 tablet with food o r milk as needed Orally Three times a day Active Problems Problem Type SNOMED Code ICD Code Onset Dates Problem Status W/U Status Risk Notes Problem [id number] Lumbago with sciatica, left side (M54.42) Active confirmed Vital Signs Blood pressure systolic 122 mm Hg 02/08/19 25 Blood pressure diastolic 74 mm Hg 025 Height 70.5 in 02/09/2024 Weight 216 lbs 02/09/2024 BMI 30.55 kg/m2 02/09/2024 weight is up 5 pounds since 11-07-23 Encounters Encounter Location Date Provider Diagnosis Yazan Grove MD [address] [place] [address] [place] [phone] 02/09/2024 Yazan Grove Prediabetes R73.09 ; Other chronic pain G89.29 and Lumbago with sciatica, left side M54.42 Assessments Encounter Date Diagnosis (ICD Code) Assessment Notes Treatment Notes Treatment Clinical Notes Section Notes 02/09/2024 Prediabetes (ICD-10 - R73.09) blood sugar a little up but had breakfast already/ had been lower. advised needs to get weight off, exercise and diet discussed 02/09/2024 Other chronic pain (ICD-10 - G89.29) 02/09/2024 Lumbago with sciatica, left side (ICD-10 - M54.42) referral to [facility] to dr garcia Plan Of Treatment Medication Medication Name Sig Start Date Stop Date Notes Ibuprofen 600 MG 1 tablet with food o r milk as needed Orally Three times a day Treatment Notes Assessment Notes Prediabetes blood sugar a little up but had breakfast already/ had been lower. advised needs to get weight off, exercise and diet discussed Lumbago with sciatica, left side referral to [facility] to dr garcia Referrals Referral Date Details 02/09/2024 02/09/2024, lumbago with sciatica lft side , Isidra Garcia Next Appt Details Provider Name:Yazan Oliva ier, 11/26/2024 08:30:00 AM, [address] [facility], [address], [place], [place], [phone], Progress Notes * Nickolas SELBYOB:1970 ([age] yo M)Acc No.[id number]:02/09/2024 Progress Notes Patient: Antwon Kimbrough Provider: Karla Grove MD :1970 A ge:53 Y S ex:Male Date:02/09/2024 Address:[address] [place], [place] [id number] Subjective: * Chief Complaints: * 3 month * HPI: S ymptom(s): patient is a 53 yo male here for 3 month follow up. * ROS: G eneral/Constitutional: Denies C hills. D enies F atigue. D enies F ever. D enies H eadache. E NT: Patient denies d ecreased sense of smell , any loss of taste , sore throat. D enies S ore throat. E ndocrine: Denies D ifficulty sleeping. D enies D izziness.?Denies E xcessive sweating. D enies E xcessive thirst. D enies F requent urination. R espiratory: Denies C ough. D enies S hortness of breath at rest. D enies S hortness of breath with exertion. G astrointestinal: Denies D iarrhea. D enies N ausea. M usculoskeletal: Patient denies m uscle aches. P eripheral Vascular: Patient denies r ed and blue toes. * Medical History: * Surgical History: * Hospitalization/Major Diagno stic Procedure: * Medications: T akingAuvi-Q 0.3 MG/0.3ML Solution Auto-injector as directed Injection as neededValsartan-hydroCHLOROthiazide 320-12.5 MG Tablet TAKE 1 TABLET BY MOUTH EVERY DAY Ibuprofen 600 MG Tablet 1 tablet with food or milk as needed Orally Three times a dayTaking Auvi-Q 0.3 MG/0.3ML Solution Auto-injector as directed Injection as neededTaking Valsartan-hydroCHLOROthiazide 320-12.5 MG Tablet TAKE 1 TABLET BY MOUTH EVERY DAY Taking Ibuprofen 600 MG Tablet 1 tablet with food or milk as needed Orally Three times a dayNot-Taking/PRNDiclofenac Sodium 75 MG Tablet Delayed Release 1 tablet with food or milk Orally once per dayMedication List reviewed and reconciled with the patientNot-Taking/PRN Diclofenac Sodium 75 MG Tablet Delayed Release 1 tablet with food or milk Orally once per dayMedication List reviewed and reconciled with the patient * Allergies: b ee stings: hives and swellingyes[Allergies Verified] Objective: * Vitals: H t: 70.5, Wt:216, BMI:30.55, BP:122/74 weight is up 5 pounds since 11-07-23. * Examination: G eneral Examination: GENERAL APPEARANCE: a lert, well hydrated, in no distress.? HEAD: n ormocephalic. SKIN: g ood turgor. HEART: n o murmurs, rubs, gallops , regular rate and rhythm. LUNGS: n o wheezes, rales, rhonchi , good air movement , clear to auscultation bilaterally. Assessment: * Assessment: 1. P rediabetes - R73.09 2 . O ther chronic pain - G89.29 3 . L umbago with sciatica, left side - M54.42 Plan: * Treatment: Value Reference Range H emoglobin A1c 6.0 * Roseann Sanchez 5 09:14:10 AM EST > ?LAB: Glucose, finger stick* Value Reference Range V alue 143 * Roseann Sanchez 5 09:02:59 AM EST > Notes: blood sugar a little up but had breakfast already/ had been lower. advised needs to get weight off, exercise and diet discussed??2.?Lumbago with sciatica, left side? Continue Ibuprofen Tablet, 600 MG, 1 tablet with food or milk as needed, Orally, Three times a day. ? Notes: referral to [facility] to dr garcia? Referral To:Isidar Garcia??Pain Medicine ?Reason:lumbago with sciatica lft side * Procedure Codes: 8 2947 ASSAY, GLUCOSE, BLOOD QUANT, Modifiers: QW 05464 GLYCATED HEMOGLOBIN TEST, Modifiers: QW * * Sign off status: Completed true * Provider: Karla Grove MD Date: 0 02/09/2024 Generated for María khan/Ping/Mahad on: 0 11/05/2024 01:30 PM EDT History and Physical Notes * HPI (History of Present Illness) Category Sub-Category Detail Notes Category Not es Symptom(s) patient is a 53 yo male here for 3 month follow up Examination Category Sub-Category Detail Notes Category Not es General Examination GENERAL APPEARANCE: alert, w ell hydrated, in no distress HEAD: normocephalic HEART: no murmurs, rubs, ga llops , regular rate and rhythm LUNGS: no wheezes, rales, r honchi , good air movement , clear to auscultation bilaterally SKIN: good turgor Consultation Request Notes Referral Date Referring Provider Referred Provider Not es 02/09/2024 Yazan Grove David lumbago wi th sciatica lft side
--- OUTSIDE RECORDS SUMMARY | 2024-11-05 03:30 | XMS_ITS ---
Author Organization Yazan Grove MD Address [address] [place] [phone] Care Team Providers Care Dental Hygienist Mobile Coordinator Name Role Phone Yazan Grove Primary Care Provider [phone] Results Component Value Reference Range Notes Comprehensive [place]. Panel Fa st (Not yet reviewed by provider) Interpretation: Performing Lab:[facility], [address] [place] [address] Notes/Report: Sodium 141 135-145 mmol/L Potassium 4.0 3.3-5.1 mmol/L Chloride 106 96-108 mmol/L Carbon Dioxide 27 22-29 mmol/L Anion Gap 12 12-20 Blood Urea Nitrogen 24 9-16 mg/dL Creatinine 0.95 0.5-1.4 mg/dL Estimated Glomerular Filt Rate > 60 Chronic Kidney Disease: Estimated GFR < 60 mL/min/1.73m2 Severe Kidney Disease: Estimated GFR < 15 mL/min/1.73m2 Glucose Fasting 115 60-99 mg/dL A fasting glucose from 100-125 mg/dl is considered impaired (pre-diabetes). Calcium 9.7 8.4-10.2 mg/dL Bilirubin Total 0.5 0.0-1.0 mg/dL Aspartate Amino Transferase 31 5-37 U/L Alanine Aminotransferase 27 0-40 U/L Total Protein 7.5 6.5-8.0 g/dL Albumin Level 4.8 3.5-5.0 g/dL Alkaline Phosphatase 63 39-117 U/L Lipid Panel (Not yet reviewe d by provider) Interpretation: Performing Lab:[address] [phone] Notes/Report: Triglycerides 131 <150 mg/dL Desirable Triglyceride: less than 150 mg/dL Borderline High Triglyceride 150-199 mg/dL High Triglyceride: 200-499 mg/dL Very High Triglyceride: greater than or equal to 5OO mg/dL Cholesterol 183 <200 mg/dL Desirable Cholesterol: less than 200 mg/dL Borderline High Cholesterol: 200-239 mg/dL High Cholesterol: greater than 239 mg/dL LDL Cholesterol Calculated 115 <100 mg/dL Desirable LDL: less than 100 mg/dL Near Optimal/Above Optimal LDL: 110-129 mg/dL Borderline High LDL: 130-159 mg/dL High LDL: 160-189 mg/dL Very High LDL: greater than or equal to 190 mg/dL HDL Cholesterol 42 >40 mg/dL Desirable HDL: greater than 40 mg/dL Note: This HDL assay may give artificially low results in patients with liver disease. PSA,Total (Free>4and<10) (No t yet reviewed by provider) Interpretation: Performing Lab:[address] [phone] Notes/Report: PSA,Total (Free>4and<10) 0.52 0.00-4.00 ng/mL A Free PSA was not [...] between 4.0 and 10.0 ng/mL. PSA methodology: Lingoingnity i Chemiluminescent Microparticle Immunoassay (CMIA) Hemoglobin A1c (Not yet revi ewed by provider) Interpretation: Performing Lab:[facility], [address] [place] [phone] Notes/Report: Hemoglobin A1c % 6.2 <6.0 % Hemoglobin A1C Reference Range Adults: 4.8 - 6.0 % Non diabetic: < 6.0 % Goal: < 7.0 % Additional Action Suggested: > 8.0 % Note: Hemoglobin A1c results are invalid for patients with abnormal amounts of HbF. Blood transfusions may impact the HbA1c concentration in the patient sample. Estimated Average Glucose 131 eAG = Estimated average glucose which is %A1C expressed as average glucose, using the formula of the [id number]-[id number] Average Glucose study (ADAG), Diabetes Care, Vol.31,#8, Sep. 2007 Complete Blood Count Auto Di ff Reviewed date:11/05/2024 12:41:38 PM Interpretation: Performing Lab:[facility], [address] [place] [phone] Notes/Report: White Blood Count 6.9 4.8-10.8 X10*3/uL Red Blood Count 4.24 4.60-5.80 X10*6/uL Hemoglobin 12.5 14.0-18.0 g/dl Hematocrit 37.4 42.0-52.0 % Mean Corpuscular Volume 88.2 80.0-98.0 fL Mean Corpuscular Hemoglobin 29.5 27.0-33.0 pg Mean Corpuscular HGB Conc 33.4 31.0-36.0 g/dl Red Cell Distribution Width 13.2 11.0-16.0 % Platelet Count 228 160-400 X10*3/uL Mean Platelet Volume 10.3 9.4-12.4 fL Neutrophils Percent Auto 62.2 45-73 % Imm Gran Pct Auto 0.4 0.0-0.4 % Lymphocytes Percent Auto 26.7 20-40 % Monocytes Percent Auto 8.4 2-11 % Eosinophils Percent Auto 1.9 0-4 % Basophils Percent Auto 0.4 0-2 % NRBC Pct Auto 0.0 0.0-0.2 /100WBC Neutrophils Absolute Auto 4.3 2.0-8.3 x10*3/u L Imm Gran Abs Auto 0.03 0.00-0.03 X10*3/uL Lymphocytes Absolute Auto 1.8 1.2-4.9 X10*3/u L Monocytes Absolute Auto 0.6 0.1-1.2 X10*3/uL Eosinophils Absolute Auto 0.1 0.0-0.4 X10*3/u L Basophils Absolute Auto 0.0 0.0-0.2 X10*3/uL NRBC Abs Auto 0.000 0.0-0.012 X10*3/uL REASON FOR VISIT yearly fasting labs Immunizations Vaccine Route Administration Date Status Comme nts Fluarix Quadrivalent - 150 IM Intramuscular 11/05/2024 Adm inistered Encounters Encounter Location Date Provider Diagnosis Yazan Grove MD [address] [place], [place] [phone] 11/05/2024 Yazan Grove Blood tests for routine general physical examination Z00.00 ; Prediabetes R73.09 ; Essential hypertension I10 ; Low HDL (under 40) E78.6 and Encounter for administration of vaccine Z23 Assessments Encounter Date Diagnosis (ICD Code) Assessment Notes Treatment Notes Treatment Clinical Notes Section Notes 11/05/2024 Blood tests for routine general physical examination (ICD-10 - Z00.00) 11/05/2024 Prediabetes (ICD-10 - R73.09) 11/05/2024 Essential hypertension (ICD-10 - I10) 11/05/2024 Low HDL (under 40) (ICD-10 - E78.6) 11/05/2024 Encounter for administration of vaccine (ICD-10 - Z23) Plan Of Treatment Pending Test Test Name Order Date Comprehensive [place]el[place]. Panel Fast Lipid Panel 11/05/2024 PSA,Total (Free>4and<10) 11/05/2024 Microalbumin, Random 11/05/2024 Hemoglobin A1c 11/05/2024 UA ClnCatch+Micro w/rflx Cult 11/05/2024 Next Appt Details Provider Name:Yazan alcantara, 11/26/2024 08:30:00 AM, [address], [address], [place], [place], [phone], Progress Notes * Nickolas SELBYOB:1970 ([age] yo M)Acc No.[id number]:11/05/2024 Progress Note Patient: Antwon HARRIS Provider: Karla Grove MD :1970 A ge:54 Y S ex:Male Date:11/05/2024 Address:[address] [place], [place] [address] [id number] Subjective: * Chief Complaints: * 1 . Yearly fasting labs. * Medical History: Objective: * Vitals: Assessment: * Assessment: 1. B lood tests for routine general physical examination - Z00.00 (Primary) 2 .?Prediabetes - R73.09 3 . E ssential hypertension - I10 4 .?Low HDL (under 40) - E78.6 5 . E ncounter for administration of vaccine - Z23 Plan: * Treatment: 2. P rediabetes L AB: Comprehensive [place]. Panel Fast (Collection Date & Time - 11/05/2024 07:30 AM) L AB: Lipid Panel (Collection Date & Time - 11/05/2024 07:30 AM) L AB: PSA,Total (Free>4and<10) (Collection Date & Time - 11/05/2024 07:30 AM) L AB: Microalbumin, Random L AB: Hemoglobin A1c (Collection Date & Time - 11/05/2024 07:30 AM) L AB: UA ClnCatch+Micro w/rflx Cult L AB: Complete Blood Count Auto Diff (Collection Date & Time - 11/05/2024 07:30 AM) 3. E ssential hypertension L AB: Comprehensive [place]el[place]. Panel Fast (Collection Date & Time - 11/05/2024 07:30 AM) L AB: Lipid Panel (Collection Date & Time - 11/05/2024 07:30 AM) L AB: PSA,Total (Free>4and<10) (Collection Date & Time - 11/05/2024 07:30 AM) L AB: Microalbumin, Random L AB: Hemoglobin A1c (Collection Date & Time - 11/05/2024 07:30 AM) L AB: UA ClnCatch+Micro w/rflx Cult L AB: Complete Blood Count Auto Diff (Collection Date & Time - 11/05/2024 07:30 AM) 4. L ow HDL (under 40) L AB: Comprehensive [place]el[place]. Panel Fast (Collection Date & Time - 11/05/2024 07:30 AM) L AB: Lipid Panel (Collection Date & Time - 11/05/2024 07:30 AM) L AB: PSA,Total (Free>4and<10) (Collection Date & Time - 11/05/2024 07:30 AM) L AB: Microalbumin, Random L AB: Hemoglobin A1c (Collection Date & Time - 11/05/2024 07:30 AM) L AB: UA ClnCatch+Micro w/rflx Cult L AB: Complete Blood Count Auto Diff (Collection Date & Time - 11/05/2024 07:30 AM) * Immunizations: Fluarix Quadrivalent - 150 : 0.5 mL (Dose No:1) (Route: Intramuscular) given by Roseann Sanchez , Office Staff on Left Deltoid * Procedure Codes: 3 6415 VENIPUNCT, ROUTINE*, 48588 VENIPUNCT, ROUTINE*, 42824 FLU VACCINE NO PRESERV 3 & >, 01612 IMMUNIZATION ADMIN * * The named appointment provid er may or may not be the originator of this progress note, and it is not deemed complete until electronically signed by the appointment provider. Sign off status: Pending * Provider: Karla Grove MD Date: 0 11/05/2024 Generated for María khan/Ping/Corineitting on: 11/05/2024 01:29 PM EDT
[2024-11-05 12:29] LABS: MANUAL DIFF FLAG NO
[2024-11-05 12:38] LABS: Hematocrit 37.4 % (42.0-52.0); Hemoglobin 12.5 g/dl (14.0-18.0); Imm Gran Abs Auto 0.03 X10*3/uL (0.00-0.03); Imm Gran Pct Auto 0.4 % (0.0-0.4); Lymphocytes Absolute Auto 1.8 X10*3/uL (1.2-4.9); Mean Corpuscular HGB Conc 33.4 g/dl (31.0-36.0); Mean Corpuscular Hemoglobin 29.5 pg (27.0-33.0); Mean Corpuscular Volume 88.2 fL (80.0-98.0); NRBC Abs Auto 0.000 X10*3/uL (0.0-0.012); NRBC Pct Auto 0.0 /100WBC (0.0-0.2); Platelet Count 228 X10*3/uL (160-400); Red Blood Count 4.24 X10*6/uL (4.60-5.80); White Blood Count 6.9 X10*3/uL (4.8-10.8)
[2024-11-05 12:48] LABS: Alanine Aminotransferase 27 U/L (0-40); Albumin Level 4.8 g/dL (3.5-5.0); Alkaline Phosphatase 63 U/L (39-117); Anion Gap 12 (12-20); Aspartate Amino Transferase 31 U/L (5-37); Blood Urea Nitrogen 24 mg/dL (9-16); Calcium 9.7 mg/dL (8.4-10.2); Carbon Dioxide 27 mmol/L (22-29); Chloride 106 mmol/L (96-108); Cholesterol 183 mg/dL (<200); Estimated Glomerular Filt Rate > 60; HDL Cholesterol 42 mg/dL (>40); Potassium 4.0 mmol/L (3.3-5.1); Sodium 141 mmol/L (135-145); Total Protein 7.5 g/dL (6.5-8.0); Triglycerides 131 mg/dL (<150)
[2024-11-05 13:08] LABS: Appearance Urine Clear; Glucose Urine UA Negative (Negative); PH 6.5 (5.0-9.0); Specific Gravity - Urine 1.020 (1.005-1.025); UMIC TRIGGER UACC YES
[2024-11-05 13:09] LABS: PSA,Total (Free>4and<10) 0.52 ng/mL (0.00-4.00)
--- OUTSIDE RECORDS SUMMARY | 2024-11-05 13:29 | XMS_ITS | Encounter Summary ---
Author Organization [employer] Address [address] [facility] [address] [place] [address] Care Team Providers Care Truck Unloader Name Role Phone Unavailable Primary Care Provider Unavailabl e Encounter Details Date Type Department Care Team (Latest Contact Info) Description 09/03/[address] [facility] CONVERSIONS Dental, Provider, DDS Social History Tobacco Use Types Packs/Day Years Used Date Smoking Tobacco: Never Assessed Sex and Gender Information Value Date Recorded Sex Assigned at Male 12/06/2021 10:24 AM EDT Legal Sex Male 10:24 AM EDT Gender Identity Choose not to disclose 10:24 AM EDT Sexual Orientation Choose not to disclose 2021 10:24 AM EDT documented as of this encounter Plan of Treatment Not on file documented as of this encounter Visit Diagnoses Not on filedocumented in this encounter
--- OUTSIDE RECORDS SUMMARY | 2024-11-05 13:29 | XMS_ITS | Clinical Summary ---
Author Organization [employer] Address [address] [place] [address] [address] [place] [address] Care Team Providers Care Machine Operator Hop Picker Name Role Phone Unavailable Primary Care Provider Unavailabl e Allergies No known active allergies Medications valsartan-hydroC HLOROthiazide (Diovan-HCT) 320-12.5 MG tablet Take 1 tablet by mouth in the morning. 10/30/2021 Active Active Problems Problem Noted Date Diagnosed Date Dental caries 03/01/2022 Gingival bleeding 03/01/2022 Dental calculus 03/01/2022 Social History Tobacco Use Types Packs/Day Years Used Date Smoking Tobacco: Never Passive Smoke Exposure: Never Smokeless Tobacco: Never Tobacco Cessation:Counseling Given: Not Answered Alcohol Use Standard Drinks/Week Comments Not Currently 0 (1 standard drink = 0.6 oz pur e alcohol) Sex and Gender Information Value Date Recorded Sex Assigned at Male 12/06/2021 10:24 AM EDT Legal Sex Male 10:24 AM EDT Gender Identity Choose not to disclose 10:24 AM EDT Sexual Orientation Choose not to disclose 2021 10:24 AM EDT Last Filed Vital Signs Vital Sign Reading Time Taken Comments Blood Pressure 128/84 03/21/2022 9:07 AM EST Pulse 76 03/01/2022 8:13 AM EST Temperature - - Respiratory Rate - - Oxygen Saturation - - Inhaled Oxygen Concentration - - Weight - - Height - - Body Mass Index - - Plan of Treatment Health Maintenance Due Date Last Done Comments Anal Pap 1969 CT Colonography 1969 Colonoscopy 1969 Colorectal Cancer Screening 1969 Depression Screening 1970 FIT DNA/Cologuard 1970 FIT 1970 FOBT 1970 HIV Screening 1970 Lipid Panel 1970 SDOH Screening 1970 Sigmoidoscopy 1970 Disability Screening 1969 Alcohol/Substance Use Screening 1981 Hepatitis C Screening 09/21/1987 DTaP/Tdap/Td Vaccines (1 - Tdap) 1988 Hepatitis A Vaccines (1 of 2 - Risk 2-dose series) 1988 Hepatitis B Vaccines (1 of 3 - 19+ 3-dose series) 1988 Pneumococcal Vaccine: 50+ Years (1 of 1 - PCV) 09/21/2019 Zoster Vaccines (1 of 2) 09/21/2019 Dental Oral Exam 08/30/2022 03/01/2022 Dental Prophylaxis 08/30/2022 03/01/2022 Dental X-Ray: Bitewings 03/02/2023 03/01/2022 Tobacco Screening 03/21/2023 03/21/2022 COVID-19 Vaccine (3 - 2024-2 6 season) 2024 03/27/2021, 05/13/2020 Influenza Vaccine (#1) 2024 , 11/07/2019, 11/28/2017 Dental X-Ray: Full Mouth 03/02/2025 03/01/2022 RSV Patients and Patients Aged 60 years or older (1 - 1-dose 75+ series) 2044 HIB Vaccines Aged Out No longer eligi ble based on patient's age to complete this topic HPV Vaccines Aged Out No longer eligi ble based on patient's age to complete this topic IPV Vaccines Aged Out No longer eligi ble based on patient's age to complete this topic Meningococcal B Vaccine Aged Out No l onger eligible based on patient's age to complete this topic Meningococcal Vaccine Aged Out No shobha tatiana eligible based on patient's age to complete this topic RSV under 20 months Aged Out No longe r eligible based on patient's age to complete this topic Rotavirus Vaccines Aged Out No longer eligible based on patient's age to complete this topic Procedures Procedure Name Priority Date/Time Associated Diagnosis Comments PERIODIC ORAL EVALUATION - ESTABLISHED PATIENT Routine 03/01/2022 9:00 AM EST Full PROPHYLAXIS - ADULT Routine 023 8:00 AM EST INTRAORAL - COMPLETE SERIES OF RADIOGRAPHIC IMAGES Routine 03/01/2022 8:00 AM EST from Last 3 Months or Most Recently Relevant to Health Maintenance Insurance DENTAL - [facility] [place]
--- OUTSIDE RECORDS SUMMARY | 2024-11-05 13:29 | XMS_ITS | Encounter Summary ---
Author Organization [employer] Address [address] [facility] [address] [place] [address] Care Team Providers Care Advertising Operations Manager Name Role Phone Unavailable Primary Care Provider Unavailabl e Encounter Details Date Type Department Care Team (Late st Contact Info) Description 04/08/2022 Abstract [facility] ADULT DENTAL [address] [place] [address] Matthew Berg DDS [address] [place] [address] Social History Tobacco Use Types Packs/Day Years Used Date Smoking Tobacco: Never Passive Smoke Exposure: Never Smokeless Tobacco: Never Alcohol Use Standard Drinks/Week Comments Not Currently 0 (1 standard drink = 0.6 oz pur e alcohol) Sex and Gender Information Value Date Recorded Sex Assigned at Male 12/06/2021 10:24 AM EDT Legal Sex Male 10:24 AM EDT Gender Identity Choose not to disclose 10:24 AM EDT Sexual Orientation Choose not to disclose 2021 10:24 AM EDT COVID-19 Exposure Response Date Recorded In the last 10 days, have joe u been in contact with someone who was confirmed or suspected to have Coronavirus/COVID-19? No / Unsure 03/21/2022 9:00 AM EST documented as of this encounter Plan of Treatment Not on file documented as of this encounter Visit Diagnoses Not on filedocumented in this encounter
--- OUTSIDE RECORDS SUMMARY | 2024-11-05 13:30 | XMS_ITS | Patient Health Record ---
Author Organization Yazan Grove MD Address [address] [place] [phone] Care Team Providers Care Set Up Machinist Name Role Phone Yazan Grove Primary Care Provider Allergies Allergen (clinical drug ingredient) Drug/Non Drug Allergy documented on EMR Reaction Allergy Type Onset Date Status bee stings (uncoded) hives and swelling Allergy Active Results Component Value Reference Range Notes Hemoglobin A1c Reviewed date:02/09/2024 09:14:11 AM Interpretation: Performing Lab: Notes/Report: Hemoglobin A1c 6.0 Comprehensive [place]. Panel Fa st (Not yet reviewed by provider) Interpretation: Performing Lab:[facility], [address] [place] [address] Notes/Report: Sodium 141 135-145 mmol/L Potassium 4.0 [...] yet reviewe d by provider) Interpretation: Performing Lab:[address] [address] Notes/Report: Triglycerides 131 <150 mg/dL Desirable Triglyceride: [...] t yet reviewed by provider) Interpretation: Performing Lab:[address] [address] Notes/Report: PSA,Total (Free>4and<10) 0.52 0.00-4.00 ng/mL A [...] i Chemiluminescent Microparticle Immunoassay (CMIA) Microalbumin, Random (Not ye t reviewed by provider) Interpretation: Performing Lab:[address] [address] Notes/Report: Creatinine Urine 116.57 Microalbumin Urine < 5.0 Microalbum/Creatinine Ratio Ur TNP <30 ug/mg cr Unable to calculate albumin/creatinine ratio due to low microalbumin or creatinine result. Hemoglobin A1c (Not yet revi ewed by provider) Interpretation: Performing Lab:[address] [phone] Notes/Report: Hemoglobin A1c % 6.2 <6.0 % [...] average glucose, using the formula of the P4W-[employer]ufbus[employer] Average Glucose study (ADAG), Diabetes Care, Vol.31,#8, Sep. 2007 Complete Blood Count Auto Di ff Reviewed date:11/05/2024 12:41:38 PM Interpretation: Performing Lab:[address] [id number] Notes/Report: White Blood Count 6.9 4.8-10.8 X10*3/uL [...] X10*3/uL NRBC Abs Auto 0.000 0.0-0.012 X10*3/uL Occult Blood, Stool, Guaiac Reviewed date:11/07/2023 11:02:47 AM Interpretation:Negative Performing Lab: Notes/Report: Negative Occult Blood, Stool, Guaiac Neg Glucose, finger stick Reviewed date:02/09/2024 09:03:01 AM Interpretation: Performing Lab: Notes/Report: Value 143 Reason For Referral Reason lower back pain M5 4.16 Lumbar radiculopathy Diagnosis 1 Low back pain, unspe cified (M54.50) Diagnosis 2 Lumbar radiculopathy (M54.16) Referral Organization Yazan Grove MD Referring Provider First Name Yazan Referring Provider Last Name Perfecto Referring Provider Speciality Internal M edicine Referred Provider [facility] Referred Provider Specialty Physical Med icine General Notes Annette Penn 1 02/09/2023 10:31:47 AM >info faxed per patient's request, will need ins referral put in, Annette Penn 12/26/2023 01:09:40 PM EST > spoke with patient he has a PT appt 12-27-2023----not sure on the time Referral Priority Routine Referral Appointment Date 12/27/2023 Reason Unspecified fracture of sacrum Diagnosis 1 Unspecified fracture of sacrum, initial encounter for closed fracture (S32.10XA) Referral Organization Yazan Grove MD Referring Provider First Name Yazan Referring Provider Last Name Perfecto Referring Provider Speciality Internal M edicine Referred Provider [facility] Referred Provider Specialty Physical Med icine General Notes Annette Penn 11:20:47 AM EDT > wants appt with Dr. Garcia [phone], Annette Penn 06/16/2023 01:59:26 PM EDT > info faxed , Annette Penn 06/26/2023 09:42:38 AM EDT > left message for patient to call office if an appt has been made yet for him , Annette Penn 06/26/2023 09:55:13 AM EDT > patient is aware of appt Referral Priority Routine Referral Appointment Date 07/24/2023 Reason lumbago with sciatic a lft side Diagnosis 1 Lumbago with sciatic a, left side (M54.42) Referral Organization Yazan Grove MD Referring Provider First Name Yazan Referring Provider Last Name Perfecto Referring Provider Speciality Internal M edicine Referred Provider Isidra Garcia Referred Provider Specialty Pain Medicin e General Notes Annette Penn 0 02/16/2024 11:52:13 AM >info faxed npi Dr. Garcia f [phone] 12 visits Referral Priority Routine Referral Appointment Date 02/20/2024 Medications Medication SIG (Take, Route, Frequency, Duration) Notes Start Date End Date Status Diclofenac Sodium 75 MG 1 tablet with fo od or milk Orally once per day for 30 days Not-Taking Auvi-Q 0.3 MG/0.3ML as directed Injectio n as needed for 2 days 08/26/2014 Active Ibuprofen 600 MG 1 tablet with food o r milk as needed Orally Three times a day Active Valsartan-hydroCHLOROthi azide 320-12.5 MG TAKE 1 TABLET BY MOUTH EVERY DAY for 90 Active Immunizations Vaccine Route Administration Date Status Comme nts Fluarix Quadrivalent IM Intramuscular 11/28/2017 Administe red Fluarix Quadrivalent IM Intramuscular 11/07/2019 Administe red Fluarix Quadrivalent IM Intramuscular 10/27/2020 Administe red Covid Vaccine Unknown 05/13/2020 Administered Madi christiano stanley Madi Covid Vaccine Unknown 03/27/2021 Administered Fluarix Quadrivalent - 150 IM Intramuscular 10/31/2023 Administered Fluarix Quadrivalent - 150 IM Intramuscular 11/05/2024 Administered Fluarix Quadrivalent Unknown 03/13/2017 Refused Fluarix Quadrivalent Unknown 10/19/2018 Refused TDaP Unknown 10/19/2018 Refused Social History Tobacco Use: Social History Observation [...] Never (0 point) Points 1 Interpretation Negative Problems Problem Type SNOMED Code ICD Code Onset Dates Problem Status W/U Status Risk Notes Problem Allergic reaction to bee sting (552338483) 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) Active confirmed Problem 28878751 Other chronic pa in (G89.29) Active confirmed Problem 666955539 Lumbago with sciatica, left side (M54.42) Active confirmed Problem 163047257 Lumbar disc dise ase (M51.9) Active confirmed Problem 60756868 Essential hypertension (I10) Active confirmed Problem 9650852 Prediabetes (R73.09) Active confirmed Problem 422925128 Low HDL (under 4 0) (E78.6) Active confirmed Problem 417343756 History of hematuria (Z87.448) Active confirmed Problem 76725231 Sciatica of righ t side (M54.31) Active confirmed Problem Leukocytosis (605624531) Elevated white blood cell count (D72.829) Active confirmed Problem 711936016021463 Spondylolisthesi s of lumbar region (M43.16) Active confirmed Problem 53753261 Vitreous floater s of right eye (H43.391) Active confirmed Vital Signs Blood pressure diastolic 74 mm Hg 02/09/2024 dayday ght is up 5 pounds since 11-07-23 Height 70.5 in 02/09/2024 weight is up 5 pounds since 11-07-23 Blood pressure systolic 122 mm Hg 02/09/2024 weig ht is up 5 pounds since 11-07-23 Weight 216 lbs 02/09/2024 weight is up 5 pounds since 11-07-23 BMI 30.55 kg/m2 02/09/2024 weight is up 5 pounds since 11-07-23 Encounters Encounter Location Date Provider Diagnosis Yazan Grove MD [address] [place] [address] Drive [address] [place] [id number] 11/05/2024 Yazan Grove Blood tests for routine general physical examination Z00.00 ; Prediabetes R73.09 ; Essential hypertension I10 ; Low HDL (under 40) E78.6 and Encounter for administration of vaccine Z23 Yazan Grove MD [address] [place] [address] Drive [address] [place] [id number] 11/07/2023 Yazan Grove Spinal stenosis of lumbar region without neurogenic claudication M48.061 ; Annual physical exam Z00.00 ; Low HDL (under 40) E78.6 ; Prediabetes R73.09 ; Essential hypertension I10 ; Colon cancer screening Z12.11 and Depression screening Z13.31 Yazan Grove MD [address] [place] [address] Drive [address] [place] [id number] 02/09/2024 Yazan Grove Prediabetes R73.09 ; Other chronic pain G89.29 and Lumbago with sciatica, left side M54.42 Assessments Encounter Date Diagnosis (ICD Code) Assessment Notes Treatment Notes Treatment Clinical Notes Section Notes 11/05/2024 Blood tests for routine general physical examination (ICD-10 - Z00.00) 11/05/2024 Prediabetes (ICD-10 - R73.09) 11/07/2023 Spinal stenosis of lumbar region without neurogenic claudication (ICD-10 - M48.061) is going to physical therapy. hopefully will get injected 11/07/2023 Annual physical exam (ICD-10 - Z00.00) labs reviewed and discussed ith patient 02/09/2024 Prediabetes (ICD-10 - R73.09) blood sugar a little up but had breakfast already/ had been lower. advised needs to get weight off, exercise and diet discussed 02/09/2024 Other chronic pain (ICD-10 - G89.29) 11/05/2024 Essential hypertension (ICD-10 - I10) 11/07/2023 Low HDL (under 40) (ICD-10 - E78.6) 02/09/2024 Lumbago with sciatica, left side (ICD-10 - M54.42) referral to [facility] to dr garcia 11/05/2024 Low HDL (under 40) (ICD-10 - E78.6) 11/07/2023 Prediabetes (ICD-10 - R73.09) stable, no need for medication at this time, will continue to monitor 11/05/2024 Encounter for administration of vaccine (ICD-10 - Z23) 11/07/2023 Essential hypertension (ICD-10 - I10) stable , at goal, will continue current regiment 11/07/2023 Colon cancer screening (ICD-10 - Z12.11) guaiac negative 11/07/2023 Depression screening (ICD-10 - Z13.31) negative screen Plan Of Treatment Pending Test Test Name Order Date Electrocardiogram (EKG) 10/05/2017 MRI LUMBAR SPINE NO CONTRAST 06/29/2023 MRI LUMBAR SPINE NO CONTRAST 08/31/2023 US SOFT TISSUE 06/22/2021 Comprehensive [place]. Panel Fast Lipid Panel 11/05/2024 PSA,Total (Free>4and<10) 11/05/2024 Microalbumin, Random 11/05/2024 ECG holter monitor 48 hour 08/08/2023 XR lumbar spine bending only 08/31/2023 Hemoglobin A1c 11/05/2024 UA ClnCatch+Micro w/rflx Cult 11/05/2024 Next Appt Details Provider Name:Yazan alcantara, 11/26/2024 08:30:00 AM, [address] [place] [address], [address], [place], [place], [phone], Insurance Providers Payer Name Payer Address Payer Phone Subscriber Number Group Number Insured Name Patient Relationship to Insured Coverage Start Date Coverage End Date [employer] [address] [place], [place] [id number] Antwon Selby Self - patient is the insured Medical (General) History Medical History History ICD Code had hematuria work up 2015 colonoscopy 04/18/22 repeat 10y
--- OUTSIDE RECORDS SUMMARY | 2024-11-05 13:30 | XMS_ITS | Patient Health Record ---
Author Organization [facility] Address [address] [place] [id number] Care Team Providers Care Professional Nursing Assistant Name Role Phone Yazan Grove MD Primary Care Provider Eze Samuel [phone] Allergies Allergen (clinical drug ingredient) Drug/Non Drug Allergy documented on EMR Reaction Allergy Type Onset Date Status Bee Sting anaphylaxis Allergy Active Reason For Referral No Information Medications Medication SIG (Take, Route, Frequency, Duration) Notes Start Date End Date Status Valsartan-hydroCHLOROthiaz diane 320-12.5 MG TAKE 1 TABLET BY MOUTH EVERY DAY Oral for 90 Active Immunizations Vaccine Route Administration Date Status Comme nts Influenza Unknown 03/04/2022 Refused Social History Tobacco Use: Social History Observation Description Date Details (start date - stop date) Never Smoker NA - NA Tobacco Use/Smoking Question Answer Notes Patient is a nonsmoker Alcohol Screen Question Answer Notes Did you have a drink contain ing alcohol in the past year? Yes How often did you have a dri nk containing alcohol in the past year? 2 to 3 times a week (3 points) How many drinks did you have on a typical day when you were drinking in the past year? 1 or 2 drinks (0 point) How often did you have 6 or more drinks on one occasion in the past year? Never (0 point) Points 3 Interpretation Negative Section Notes: Nonsmoker, no significant al cohol Problems Problem Type SNOMED Code ICD Code Onset Dates Problem Status W/U Status Risk Notes Problem 788715520 Colon cancer screening (Z12.11) Active confirmed Problem Diverticular disease of colon (232437970) Diverticulosis of large intestine without perforation or abscess without bleeding (K57.30) Active confirmed Problem 171004652366551 Pre-procedural examination (Z01.818) Active confirmed Plan Of Treatment Future Test Test Name Order Date COLONOSCOPY 03/04/2022 Insurance Providers Payer Name Payer Address Payer Phone Subscriber Number Group Number Insured Name Patient Relationship to Insured Coverage Start Date Coverage End Date [facility] [address] [place] [phone] [id number] MARIANNA ALFARO Self - patient is the insured Medical (General) History Medical History History ICD Code HTN Denies NE,DM,CVA,Lung disease,renal dise ase Anaphylaxis due to a bee sting Surgical History Surgery Date(Month/Year) Knee surgery - meniscus 2012 Hospitalization History Reason Date(Month/Year) Bee sting with anaphylaxis
== END 2024-11-05 07:31 | disposition home or self-care (01) ==
LOC: HO.LNP 07:30
PROVIDERS: Visit Provider Internal Medicine
DX: Z00.00 Encounter for general adult medical examination without abnormal findings (principal); R73.09 Other abnormal glucose; I10 Essential (primary) hypertension; E78.6 Lipoprotein deficiency; Z12.5 Encounter for screening for malignant neoplasm of prostate
CPT/HCPCS: 80053; 80061; 81001; 82043; 82570; 83036; 84153; 85025